=== PATIENT | female | born 1990 | race Caucasian/White ===

== ENCOUNTER 2016-11-11 22:49 | Emergency (ER) | payer BC, OTHER ==
[2016-11-11 23:07] VITALS: RESP 18
--- NOTE | 2016-11-11 23:31 | ED ---
Abdominal Pain HPI - General Chief Complaint: Abdominal Pain Stated Complaint: Abd Pain Time Seen by Provider: 11/11/16 23:11 Source: patient, RN notes reviewed Mode of arrival: ambulatory Limitations: no limitations - History of Present Illness Initial Comments: Patient is a 26-year-old female presents to the emergency room for evaluation of abdominal pain. Patient states she has been experiencing a cramping-type pain in her lower abdomen for the past 2 weeks. Patient states she's never had pain like this before. Patient denies any history of abdominal surgeries. Patient does mention she has a history of PCOS. Patient states this pain does not feel similar to her normal PCOS symptoms. Patient states her last menstrual cycle ended on 11/08/16. Patient states her menstrual cycle lasted about 3 days. Patient states she recently had her IUD taken out about a month ago. Patient no longer states she is on control. Patient denies chest pain or shortness of breath. Patient denies nausea or vomiting. Patient denies headache or dizziness. Patient denies pain or burning during urination, trouble urinating or blood in urine. Patient denies constipation or diarrhea. Patient states she had two normal bowel movements today. Patient denies fevers or chills. - Related Data Previous Rx's Medication Instructions Recorded Dicyclomine [Bentyl] 10 mg PO TID PRN #12 capsule 11/12/16 Allergies Allergy/AdvReac Type Severity Reaction Status Date / Time No Known Allergies Allergy Verified 11/11/16 23:27 Review of Systems ROS Statement: Those systems with pertinent positive or pertinent negative responses have been documented in the HPI. ROS Other: All systems not noted in ROS Statement are negative. Past Medical History Past Medical History: No Reported History History of Any Multi-Drug Resistant Organisms: None Reported Past Surgical History: No Surgical Hx Reported Past Psychological History: No Psychological Hx Reported Smoking Status: Current some day smoker Past Alcohol Use History: Occasional Past Drug Use History: None Reported General Exam - General Exam Comments Initial Comments: Sitting in exam room, no acute distress. Limitations: no limitations General appearance: alert, in no apparent distress Head exam: Present: atraumatic, normocephalic, normal inspection Eye exam: Present: normal appearance ENT exam: Present: normal exam Neck exam: Present: normal inspection Respiratory exam: Present: normal lung sounds bilaterally. Absent: respiratory distress Cardiovascular Exam: Present: regular rate, normal rhythm, normal heart sounds GI/Abdominal exam: Present: soft, normal bowel sounds. Absent: distended, tenderness, guarding, rebound, rigid Extremities exam: Present: normal inspection Back exam: Present: normal inspection Neurological exam: Present: alert, oriented X3, CN II-XII intact, normal gait Psychiatric exam: Present: normal affect, normal mood Skin exam: Present: warm, dry, intact, normal color. Absent: rash Course Vital Signs 11/11/16 11/12/16 23:05 01:35 Temperature 98.4 F 97.2 F L Pulse Rate 60 75 Respiratory 18 18 Rate Blood Pressure 106/70 101/70 O2 Sat by Pulse 98 98 Oximetry Medical Decision Making - Medical Decision Making Patient is a 26-year-old female presents emergency room for evaluation of lower abdominal cramping. Labs show no concerning findings. Ultrasound shows no significant findings. Patient will be placed on Bentyl for cramping and advised to follow-up with primary care provider for further evaluation. Patient states she understands everything that was discussed with her. Return parameters discussed. Case discussed with Dr. Can. - Lab Data Result diagrams: 11/11/16 23:43 11/11/16 23:43 Lab Results 11/11/16 11/11/16 11/11/16 Range/Units 23:15 23:15 23:43 WBC (3.8-10.6) k/uL RBC (3.80-5.40) m/uL Hgb (11.4-16.0) gm/dL Hct (34.0-46.0) % MCV (80.0-100.0) fL MCH (25.0-35.0) pg MCHC (31.0-37.0) g/dL RDW (11.5-15.5) % Plt Count (150-450) k/uL Neutrophils % % Lymphocytes % % Monocytes % % Eosinophils % % Basophils % % Neutrophils # (1.3-7.7) k/uL Lymphocytes # (1.0-4.8) k/uL Monocytes # (0-1.0) k/uL Eosinophils # (0-0.7) k/uL Basophils # (0-0.2) k/uL Sodium 141 (137-145) mmol/L Potassium 3.9 (3.5-5.1) mmol/L Chloride 105 (98-107) mmol/L Carbon Dioxide 24 (22-30) mmol/L Anion Gap 12 mmol/L BUN 14 (7-17) mg/dL Creatinine 0.70 (0.52-1.04) mg/dL Est GFR (MDRD) Af Amer >60 (>60 ml/min/1.73 sqM) Est GFR (MDRD) Non-Af >60 (>60 ml/min/1.73 sqM) Glucose 84 (74-99) mg/dL Calcium 9.7 (8.4-10.2) mg/dL Total Bilirubin 0.4 (0.2-1.3) mg/dL AST 27 (14-36) U/L ALT 35 (9-52) U/L Alkaline Phosphatase 53 (38-126) U/L Total Protein 7.3 (6.3-8.2) g/dL Albumin 4.4 (3.5-5.0) g/dL Amylase 49 (30-110) U/L Lipase 169 (23-300) U/L Urine Color Light Yellow Urine Appearance Clear (Clear) Urine pH 5.5 (5.0-8.0) Ur Specific [place] 1.006 (1.001-1.035) Urine Protein Negative (Negative) Urine Glucose (UA) Negative (Negative) Urine Ketones Negative (Negative) Urine Blood Negative (Negative) Urine Nitrite Negative (Negative) Urine Bilirubin Negative (Negative) Urine Urobilinogen <2.0 (<2.0) mg/dL Ur Leukocyte Esterase Trace H (Negative) Urine RBC <1 (0-5) /hpf Urine WBC 2 (0-5) /hpf Ur Squamous Epith Cells <1 (0-4) /hpf Urine HCG, Qual Not Detected (Not Detectd) 11/11/16 Range/Units 23:43 WBC 8.1 (3.8-10.6) k/uL RBC 4.23 (3.80-5.40) m/uL Hgb 13.1 (11.4-16.0) gm/dL Hct 38.3 (34.0-46.0) % MCV 90.7 (80.0-100.0) fL MCH 30.9 (25.0-35.0) pg MCHC 34.0 (31.0-37.0) g/dL RDW 12.5 (11.5-15.5) % Plt Count 301 (150-450) k/uL Neutrophils % 48 % Lymphocytes % 43 % Monocytes % 4 % Eosinophils % 2 % Basophils % 1 % Neutrophils # 3.9 (1.3-7.7) k/uL Lymphocytes # 3.5 (1.0-4.8) k/uL Monocytes # 0.3 (0-1.0) k/uL Eosinophils # 0.2 (0-0.7) k/uL Basophils # 0.1 (0-0.2) k/uL Sodium (137-145) mmol/L Potassium (3.5-5.1) mmol/L Chloride (98-107) mmol/L Carbon Dioxide (22-30) mmol/L Anion Gap mmol/L BUN (7-17) mg/dL Creatinine (0.52-1.04) mg/dL Est GFR (MDRD) Af Amer (>60 ml/min/1.73 sqM) Est GFR (MDRD) Non-Af (>60 ml/min/1.73 sqM) Glucose (74-99) mg/dL Calcium (8.4-10.2) mg/dL Total Bilirubin (0.2-1.3) mg/dL AST (14-36) U/L ALT (9-52) U/L Alkaline Phosphatase (38-126) U/L Total Protein (6.3-8.2) g/dL Albumin (3.5-5.0) g/dL Amylase (30-110) U/L Lipase (23-300) U/L Urine Color Urine Appearance (Clear) Urine pH (5.0-8.0) Ur Specific [place] (1.001-1.035) Urine Protein (Negative) Urine Glucose (UA) (Negative) Urine Ketones (Negative) Urine Blood (Negative) Urine Nitrite (Negative) Urine Bilirubin (Negative) Urine Urobilinogen (<2.0) mg/dL Ur Leukocyte Esterase (Negative) Urine RBC (0-5) /hpf Urine WBC (0-5) /hpf Ur Squamous Epith Cells (0-4) /hpf Urine HCG, Qual (Not Detectd) - Radiology Data Radiology results: report reviewed, image reviewed Disposition Clinical Impression: Abdominal pain Disposition: HOME SELF-CARE Condition: Good Instructions: Abdominal Pain (ED) Additional Instructions: Take medications as needed. Please follow up with primary care provider for further evaluation. If any new symptom arises or symptoms worsen, return to ER as soon as possible. Prescriptions: Dicyclomine [Bentyl] 10 mg PO TID PRN #12 capsule PRN Reason: Pain Referrals: Luzmaria Henriquez MD [Primary Care Provider] - 1-2 days Time of Disposition: 01:17
[2016-11-11 23:38] LABS: Appearance,Urine Clear (Clear); Bilirubin,Urine Negative (Negative); Glucose,Urine (UA) Negative (Negative); Ketones,Urine Negative (Negative); Leukocyte Esterase,Urine Trace (Negative); Nitrite,Urine Negative (Negative); PH, Urine 5.5 (5.0-8.0); Particle Count 646; Protein,Urine Negative (Negative); RBC,Urine <1 /hpf (0-5); Specific Gravity,Urine 1.006 (1.001-1.035); Squamous Epithelial Cell,Urine <1 /hpf (0-4); UA Billing (MACRO vs. MICRO) MICRO; Urobilinogen,Urine <2.0 mg/dL (<2.0); WBC,Urine 2 /hpf (0-5)
[2016-11-11 23:54] LABS: Basophils # (A) 0.1 k/uL (0-0.2); Basophils % (A) 1 %; CH 31.6; Eosinophils # (A) 0.2 k/uL (0-0.7); Eosinophils % (A) 2 %; HCT 38.3 % (34.0-46.0); HDW 2.53; HGB 13.1 gm/dL (11.4-16.0); Luc # (Auto) 0.14; Luc % (Auto) 2; Lymphocytes # (A) 3.5 k/uL (1.0-4.8); Lymphocytes % (A) 43 %; MCH 30.9 pg (25.0-35.0); MCV 90.7 fL (80.0-100.0); Mean Platelet Volume 6.4; Monocytes # (A) 0.3 k/uL (0-1.0); Monocytes % (A) 4 %; Neutrophils # (A) 3.9 k/uL (1.3-7.7); Neutrophils % (A) 48 %; RBC 4.23 m/uL (3.80-5.40); RDW 12.5 % (11.5-15.5); WBC 8.1 k/uL (3.8-10.6); WBC (Perox) 8.54
[2016-11-12 00:08] LABS: Glucose 84 mg/dL (74-99); Total Protein 7.3 g/dL (6.3-8.2)
[2016-11-12 00:09] LABS: ALT 35 U/L (9-52); AST 27 U/L (14-36); Alkaline Phosphatase 53 U/L (38-126); Amylase 49 U/L (30-110); Anion Gap 12 mmol/L; Blood Urea Nitrogen 14 mg/dL (7-17); Calcium 9.7 mg/dL (8.4-10.2); Carbon Dioxide 24 mmol/L (22-30); Chloride 105 mmol/L (98-107); Non-African American GFR(MDRD) >60 (>60 ml/min/1.73 sqM); Potassium 3.9 mmol/L (3.5-5.1); Sodium 141 mmol/L (137-145); Total Bilirubin 0.4 mg/dL (0.2-1.3)
--- NOTE | 2016-11-12 00:59 | US ---
EXAM: US Pelvis Complete, transvaginal CLINICAL HISTORY: Reason: Pain TECHNIQUE: Real-time transvaginal pelvic ultrasound (complete) with image documentation. COMPARISON: No relevant prior studies available. FINDINGS: Uterus/cervix: Uterus measures 7.8 x 3.6 x 5.5 cm. No myometrial masses identified. Endometrial echo complex measures 7.0 mm. No endometrial fluid collections identified. Right ovary: Right ovary is unremarkable measuring 2.9 x 2.0 x 1.9 cm. and contains several small follicles. Both ovaries demonstrate normal Doppler vascular flow signal. Left ovary: Left ovary is unremarkable measuring 3.1 x 2.2 x 2.3 cm and contains several small follicles. Free fluid: No free fluid in the cul-de-sac. Other findings: No abnormal adnexal Masses or cysts identified. IMPRESSION: Normal pelvic ultrasound.
[2016-11-12] MEDS ORDERED: DICYCLOMINE 10 MG CAP PO STA (01:25)
[2016-11-12 01:36] VITALS: BP 101/70; PULSE 75; TEMP 97.2
== END 2016-11-12 01:36 | disposition home or self-care (01) ==
LOC: EC 22:49
DX: R10.30 Lower abdominal pain, unspecified (principal); F17.200 Nicotine dependence, unspecified, uncomplicated; Z87.42 Personal history of other diseases of the female genital tract
CPT/HCPCS: 36415; 76830; 80053; 81001; 81025; 82150; 83690; 85025; 93975; 99284

== ENCOUNTER → 2017-09-22 | Outpatient (CLI) | payer OTHER ==
[2017-09-22 12:33] LABS: HCT 39.1 % (34.0-46.0); HGB 12.7 gm/dL (11.4-16.0); MCH 28.6 pg (25.0-35.0); MCHC 32.5 g/dL (31.0-37.0); RBC 4.44 m/uL (3.80-5.40); WBC 6.7 k/uL (3.8-10.6)
[2017-09-22 12:34] LABS: Basophils % (A) 1 %; Eosinophils # (A) 0.1 k/uL (0-0.7); Eosinophils % (A) 2 %; Lymphocytes # (A) 1.8 k/uL (1.0-4.8); Lymphocytes % (A) 26 %; Mean Platelet Volume 6.9; Monocytes # (A) 0.3 k/uL (0-1.0); Monocytes % (A) 4 %; Neutrophils # (A) 4.4 k/uL (1.3-7.7); Neutrophils % (A) 66 %; Platelet Count 305 k/uL (150-450)
[2017-09-22 12:39] LABS: ALT 19 U/L (9-52); AST 21 U/L (14-36); Albumin 4.3 g/dL (3.5-5.0); Alkaline Phosphatase 55 U/L (38-126); Anion Gap 9 mmol/L; Blood Urea Nitrogen 9 mg/dL (7-17); Calcium 9.7 mg/dL (8.4-10.2); Carbon Dioxide 25 mmol/L (22-30); Chloride 107 mmol/L (98-107); Glucose 88 mg/dL (74-99); Potassium 4.7 mmol/L (3.5-5.1); Sodium 141 mmol/L (137-145); Total Bilirubin 0.4 mg/dL (0.2-1.3)
[2017-09-22 12:55] LABS: T4, Free (Free Thyroxine) 1.02 ng/dL (0.78-2.19)
[2017-09-22 16:28] LABS: Gliadin AB IgA, Unit 1.2 U/mL
== END | disposition home or self-care (01) ==
LOC: LABWHC1 11:55
PROVIDERS: ATTEND Physician Assistant
DX: K59.09 Other constipation (principal)
CPT/HCPCS: 36415; 80053; 83516; 84439; 84443; 85025

== ENCOUNTER 2018-03-04 21:57 | Emergency (ER) | payer OTHER ==
[2018-03-04 22:11] VITALS: BP 121/85; PULSE 66; RESP 20; TEMP 98.4
--- NOTE | 2018-03-04 22:44 | ED ---
ENT HPI - General Chief complaint: ENT Stated complaint: Ear Pain Time Seen by Provider: 03/04/18 22:23 Source: patient Mode of arrival: ambulatory Limitations: no limitations - History of Present Illness Initial comments: This a 27-year-old female past medical history of chronic sinus issues and current left tympanic membrane perforation who presents today for chief complaint of right ear pain. Patient states that she has been seeing an ears nose throat specialist for a left tympanic membranes perforation and chronic sinusitis. However about 4 hours ago she began noticing right ear pain. Patient denies fever, chills, pain to the posterior, night sweats, complete hearing loss, drainage, injury to the rigth ear, tinnitus or any other symptoms. Patient denies any rashes or lesions. Pt denies recent antibiotic use. Remainder ROS (-). Upon arrival pt VS stable. - Related Data Home Medications Medication Instructions Recorded Confirmed Cetirizine HCl [Zyrtec] 10 mg PO DAILY 03/04/18 03/04/18 Fluticasone Nasal [place] [Flonase 1 spray NASAL DIRECTED PRN 03/04/18 03/04/18 Nasal [place]] Previous Rx's Medication Instructions Recorded Amoxicillin 500 mg PO Q12HR 10 Days #20 cap 03/04/18 Ibuprofen [Motrin] 600 mg PO Q8HR PRN 7 Days #21 tab 03/04/18 Allergies Allergy/AdvReac Type Severity Reaction Status Date / Time No Known Allergies Allergy Verified 03/04/18 22:11 Review of Systems ROS Statement: Those systems with pertinent positive or pertinent negative responses have been documented in the HPI. ROS Other: All systems not noted in ROS Statement are negative. Constitutional: Denies: fever, chills, night sweats ENT: Reports: ear pain, hearing loss (pt admits to muffled hearing in right hear ) Respiratory: Denies: dyspnea, wheezes, hemoptysis, stridor Cardiovascular: Denies: chest pain, palpitations Endocrine: Denies: fatigue Gastrointestinal: Denies: abdominal pain, nausea, vomiting, diarrhea, constipation Genitourinary: Denies: urgency, dysuria Musculoskeletal: Denies: back pain Skin: Denies: as per HPI, rash, lesions Neurological: Denies: headache, numbness, paresthesias, confusion, abnormal gait Past Medical History Past Medical History: No Reported History History of Any Multi-Drug Resistant Organisms: None Reported Past Surgical History: No Surgical Hx Reported Past Psychological History: No Psychological Hx Reported Smoking Status: Former smoker Past Alcohol Use History: Occasional Past Drug Use History: None Reported General Exam - General Exam Comments Initial Comments: General: The patient is awake and alert, in no distress, and does not appear acutely ill. Eye: Pupils are equal, round and reactive to light, extra-ocular movements are intact. No nystagmus. There is normal conjunctiva bilaterally. No signs of icterus. Ears, nose, mouth and throat: There are moist mucous membranes and no oral lesions. Left tympanic membranes not erythematous, however there is a tympanic number perforation at the 6 o'clock position. There is no evidence of active draining. Upon examination of the right big membrane that is erythematous and bulging. There is no evidence of effusion or tympanic membrane perforation at this time. Examination of external auditory canal the ears bilaterally is within normal limits no erythema or edema. Patient denies pain to pulling of the auricle or pressure on the tragus. There is no tenderness to patient over the mastoid bilaterally. No palpable preauricular lymph adenopathy. Examination of the oropharynx there is postnasal drip. Tonsils are not erythematous, not erythematous oropharynx. Tonsillar exudates or crypts. Neck: The neck is supple, there is no tenderness or JVD. Cardiovascular: There is a regular rate and rhythm. No murmur, rub or gallop is appreciated. Respiratory: Lungs are clear to auscultation, respirations are non-labored, breath sounds are equal. No wheezes, stridor, rales, or rhonchi. Musculoskeletal: Normal ROM, no tenderness. Radial pulses equal bilaterally 2+ . Neurological: A&O x 3. CN II-XII intact, There are no obvious motor or sensory deficits. Coordination appears grossly intact. Speech is normal. Skin: Skin is warm and dry and no rashes or lesions are noted. Psychiatric: Cooperative, appropriate mood & affect, normal judgment. Limitations: no limitations Course Vital Signs 03/04/18 22:09 Temperature 98.4 F Pulse Rate 66 Respiratory 20 Rate Blood Pressure 121/85 O2 Sat by Pulse 99 Oximetry Medical Decision Making - Medical Decision Making PE revealed signs of right AOM. No concern/signs/symptoms of mastoiditis or cholesteatoma at this time. Pt VS stable afebrile. At this time I feel pt is stable for d/c with ENT f/u and RX for amoxicillin (pt denied current or recent abx use). Case discussed wiht Dr. Oliveira and pt discharged in stable condition. Pt agreed with plan prior to discharge and denied questions at this time. Pt denied current or risk of at this time. Disposition Clinical Impression: Otitis media, Right ear pain Disposition: HOME SELF-CARE Condition: Good Instructions: Ear Infection (ED) Additional Instructions: Please use medication as discussed. Please follow-up with your ENT or family doctor in the next 2-3 days. Please return to emergency room if the symptoms increase or worsen or for any other concerns. Prescriptions: Amoxicillin 500 mg PO Q12HR 10 Days #20 cap Ibuprofen [Motrin] 600 mg PO Q8HR PRN 7 Days #21 tab PRN Reason: Pain Is patient prescribed a controlled substance at d/c from ED?: No Referrals: Riley Cortes DO [Primary Care Provider] - 1-2 days Antonio Mobley DO [Doctor of Osteopathic Medicine] - 1-2 days Time of Disposition: 22:44
== END 2018-03-04 22:49 | disposition home or self-care (01) ==
LOC: EC 21:57 → SUPCPDRO 21:57 → EC 22:49
DX: H66.91 Otitis media, unspecified, right ear (principal); Z87.891 Personal history of nicotine dependence; Z79.899 Other long term (current) drug therapy
CPT/HCPCS: 99282

== ENCOUNTER → 2018-09-17 | Outpatient (CLI) | payer OTHER ==
[2018-09-17 14:43] VITALS: BP 110/77; PULSE 78; RESP 16; TEMP 97.4; BMI 34.6
--- NOTE | 2018-09-17 15:44 | P.HPBAR ---
Bariatric H&P - History & Physicial H&P Date: 09/17/18 History & Physicial: Visit/CC: initial visit Patient initial contact: Initial weight: 106.282 kg Initial weight in pounds: 234.31 Height: 5 ft 7.75 in Initial BMI: 34.6 Last weight: Current weight: 106.282 kg Current weight in pounds: 234.31 Current BMI: 34.6 [place] body weight (based on NIH guidelines): 65.771 kg Excess body weight loss: 0.0% The patient is a 28 year-old F who presents for Bariatric Assessment. Patient seen today as a new patient bariatric evaluation. She was at the center 2 days ago. The patient's sister had previously been gastrectomy. She is interested in sleeve gastrectomy at this time. The patient has struggled with her weight fluctuating over the years. She was having his diet to 80. This was when she was in high school. She has had episodes in the distant past where she felt she may be suffering from anorexia. Patient has issues currently with depression PCO S, and infertility related to her weight. Patient quit smoking 4 months ago. Denies any history of DVT or dysphagia. No significant reflux symptoms. Review of Systems The patient denies any acute changes in vision or hearing, no dysphagia or odynophagia, no chest pain or shortness of breath, no dysuria or hematuria, no headache, no runny nose, no rectal bleeding or melena, no unexplained weight loss Past Medical History Past Medical History: No Reported History History of Any Multi-Drug Resistant Organisms: None Reported Past Surgical History: No Surgical Hx Reported Past Psychological History: No Psychological Hx Reported Smoking Status: Former smoker Past Alcohol Use History: Occasional Past Drug Use History: None Reported Surgical - Exam Vital Signs Temp Pulse Resp BP 97.4 F L 78 16 110/77 09/17/18 14:41 09/17/18 14:41 09/17/18 14:41 09/17/18 14:41 Physical exam: General: Well-developed, well-nourished HEENT: Normocephalic, sclerae nonicteric Abdomen: Nontender, nondistended Extremities: No edema Neuro: Alert and oriented Bariatric Assessment & Plan (1) Morbid obesity Narrative/Plan: Surgical options reviewed in detail. Patient interested in sleeve gastrectomy. Patient's weight has fluctuated significantly over the years. I do believe she is a good candidate for sleeve gastrectomy. Await primary care physician supporting documentation. Patient will require preoperative EGD. Patient will follow up post endoscopy prior to scheduling. Status: Acute Bariatric Checklist Checklist: Plan: Checklist: EGD: 1. Hiatal hernia: 2. H. Pylori: HgbA1c: Vitamin D: Smoking: Former smoker Primary care physician referral: dr mckeon Psychiatry clearance: Cardiology clearance: Sleep study: Diet journal: VTE risk score: VTE risk level: Rehab needs at discharge:
[2018-09-18 01:41] LABS: Hemoglobin A1C 4.9 % (4.0-6.0)
== END ==
LOC: BARWHC3 14:13 → MERGE 14:30
PROVIDERS: ATTEND Surgery
DX: E66.01 Morbid (severe) obesity due to excess calories (principal); E28.2 Polycystic ovarian syndrome; F32.9 Major depressive disorder, single episode, unspecified; Z68.34 Body mass index [BMI] 34.0-34.9, adult; Z87.891 Personal history of nicotine dependence
CPT/HCPCS: 83036; 93005; 99211

== ENCOUNTER 2018-09-23 11:20 | Day surgery (SDC) | payer OTHER ==
[2018-09-22 14:41] VITALS: BMI 36.3
[~2018-09-23 11:20] MED LIST: LACTATED RINGERS 1,000 ML IV SCH; LIDOCAINE 1% 20 ML VIAL (10MG/ML) FOR IV START INTRADERMA PRN
[2018-09-23 11:37] VITALS: TEMP 97.9
[2018-09-23] MEDS ORDERED: LACTATED RINGERS 1,000 ML IV ONE (11:37)
[2018-09-23] MEDS ORDERED: MIDAZOLAM 2 MG/2 ML VIAL ONE (12:34)
[2018-09-23] MEDS ORDERED: LIDOCAINE 1% INJ 10MG/ML (20 ML MDV) ONE (12:34)
[2018-09-23] MEDS ORDERED: PROPOFOL 10 MG/ML 20 ML VIAL IV ONE (12:34)
--- NOTE | 2018-09-23 12:38 | P.GSHP ---
History of Present Illness H&P Date: 09/23/18 Chief Complaint: GERD, presurgical Patient here today for upper endoscopy. Patient recently seen in the bariatric clinic. Patient is scheduled for upcoming sleeve gastrectomy. Minimal reflux symptoms. No dysphagia. Past Medical History Past Medical History: No Reported History Additional Past Medical History / Comment(s): migraines, palpitations, History of Any Multi-Drug Resistant Organisms: None Reported Past Surgical History: No Surgical Hx Reported Additional Past Surgical History / Comment(s): oral surgery Past Anesthesia/Blood Transfusion Reactions: No Reported Reaction Smoking Status: Former smoker - Past Family History Mother Family Medical History: No Reported History Medications and Allergies Home Medications Medication Instructions Recorded Confirmed Type No Known Home Medications 09/18/18 09/22/18 History Allergies Allergy/AdvReac Type Severity Reaction Status Date / Time No Known Allergies Allergy Verified 09/22/18 14:35 Surgical - Exam Vital Signs Temp Pulse Resp BP Pulse Ox 97.9 F 67 18 130/75 100 09/23/18 11:36 09/23/18 11:36 09/23/18 11:36 09/23/18 11:36 09/23/18 11:36 Physical exam: General: Well-developed, well-nourished HEENT: Normocephalic, sclerae nonicteric Abdomen: Nontender, nondistended Extremities: No edema Neuro: Alert and oriented Assessment and Plan (1) Morbid obesity Narrative/Plan: Will proceed with upper endoscopy at this time Current Visit: No Status: Acute Code(s): E66.01 - MORBID (SEVERE) OBESITY DUE TO EXCESS CALORIES SNOMED Code(s): 122467945
--- NOTE | 2018-09-23 12:44 | P.PCN ---
Date of Procedure: 09/23/18 Procedure(s) Performed: Preoperative Dx: GERD, presurgical Postoperative Dx: Mild gastritis, small sliding hiatal hernia Procedure: EGD with Bx Anesthesia: Sedation Endoscopist: Dr. Lauren Specimens: Antrum Endoscopic Procedure: The patient was on the endoscopy table in the left decubitus position. The Olympus gastroscope was inserted into the oropharynx and passed under direct visualization to the region of the third portion of the duodenum. From that point the scope was slowly withdrawn inspecting all surfaces carefully. There were no neoplastic inflammatory or polypoid lesions throughout the duodenum. The pylorus was widely patent. The stomach was carefully inspected. There was mild gastritis present. A biopsy of the antrum took place to rule out H. pylori. Retroflexion revealed a small sliding hiatal hernia. The GE junction was present 1 cm above the diaphragmatic hiatus. The esophagus was then carefully examined. There were no neoplastic inflammatory or polypoid lesions throughout the visualized esophagus. The patient was then taken to the recovery room in stable condition per anesthesia guidelines. Recommendations: Await biopsy results.
[2018-09-23 12:54] VITALS: RESP 16
[2018-09-23 13:08] VITALS: BP 90/54; PULSE 51
== END 2018-09-23 13:25 | disposition home or self-care (01) ==
LOC: ORWHC2ENDO 11:20
PROVIDERS: ATTEND Surgery
DX: K21.9 Gastro-esophageal reflux disease without esophagitis (principal); E66.01 Morbid (severe) obesity due to excess calories; Z68.36 Body mass index [BMI] 36.0-36.9, adult; K29.50 Unspecified chronic gastritis without bleeding; K44.9 Diaphragmatic hernia without obstruction or gangrene; Z87.891 Personal history of nicotine dependence
CPT/HCPCS: 81025; 43239; J2250; J2001; J2704; 88305

== ENCOUNTER → 2019-01-18 | Outpatient (CLI) | payer OTHER | END | disposition home or self-care (01) | LOC: LABWHC1 12:54 | PROVIDERS: ATTEND Surgery | DX: F17.200 Nicotine dependence, unspecified, uncomplicated (principal) | CPT/HCPCS: 80323 ==

== ENCOUNTER → 2019-04-27 | Outpatient (CLI) | payer BC, OTHER ==
[2019-04-27 15:06] VITALS: BP 115/84; PULSE 101; RESP 16; TEMP 98.2; BMI 37.2
--- NOTE | 2019-04-27 15:34 | P.BASOAP ---
Subjective Progress Note Date: 04/27/19 Principal diagnosis: Morbid obesity Patient here today to discuss sleeve gastrectomy. Patient was seen earlier this year and actually underwent upper endoscopy and was scheduled for sleeve gastrectomy when she had a change in her insurance coverage. Surgery was held at that time. She is now interested in resuming her weight loss journey. She is interested in proceeding with sleeve gastrectomy in the near future. No significant changes to her history since last evaluation with the exception of starting Zoloft and Flonase. She has obtained cardiac clearance for history of possible SVT in the past a low she states she was told it was likely a panic attack. Her weight has gone up from 234-252. No recent labs. Objective - Vital Signs Vital signs: Vital Signs Temp 98.2 F 04/27/19 15:02 Pulse 101 H 04/27/19 15:02 Resp 16 04/27/19 15:02 BP 115/84 04/27/19 15:02 Pulse Ox Intake & Output 04/26/19 04/27/19 04/27/19 18:59 06:59 18:59 Weight 114.305 kg - Exam Abdomen: Soft, nontender, nondistended Assessment/Plan (1) Morbid obesity Narrative/Plan: Will schedule for sleeve gastrectomy in the near future. We'll plan hiatal herniorrhaphy simultaneous to the procedure. The risks of bleeding, infection, stenosis, stricture, leak, abscess, fistula formation, peritonitis, p oor weight loss, reflux, vomiting, conversion to an open procedure, aborting sleeve gastrectomy, AL, PE, DVT, and were discussed. The patient understands and wishes to proceed.Check labs drawn at her primary care physician's office earlier today. Plan: Date: 04/27/19 Initial Weight: 106.282 kg Initial BMI: 34.6 Current Weight: 114.305 kg Current BMI: 37.2 Type of Surgery: Total Volume in Band: Previous Volume: Volume Removed: Volume Added: Band Size:
== END ==
LOC: BARWHC3 14:39
PROVIDERS: ATTEND Surgery
DX: E66.01 Morbid (severe) obesity due to excess calories (principal); Z68.37 Body mass index [BMI] 37.0-37.9, adult
CPT/HCPCS: 99211

== ENCOUNTER 2019-05-31 09:34 | Inpatient (IN) | payer BC ==
[~2019-05-31 09:34] MED LIST changes: +DEXAMETHASONE SOD PHOSPHATE 10 MG/ML 1 ML VIAL IV ONE; +ENOXAPARIN 40 MG/0.4 ML SYRINGE SQ ONE; -LACTATED RINGERS 1,000 ML IV SCH; -LIDOCAINE 1% 20 ML VIAL (10MG/ML) FOR IV START INTRADERMA PRN; +MIDAZOLAM 2 MG/2 ML VIAL IV PRN; +SCOPOLAMINE 1.5MG/72HR PATCH TRANSDERM ONE
--- NOTE | 2019-05-31 10:17 | P.GSHP ---
History of Present Illness H&P Date: 05/31/19 Chief Complaint: Morbid obesity 29-year-old female known to our service. Initially seen in September of this year. Patient complaining of morbid obesity. Her sister has had a sleeve gastrectomy in the past. She is interested in only sleeve gastrectomy at this time. Recent BMI 35.9. Patient suffers from depression PCO S and infertility related to her weight. Denies history of DVT or dysphagia. Minimal reflux symptoms. Recent EGD showed mild gastritis and a small hiatal hernia. Past Medical History Past Medical History: No Reported History Additional Past Medical History / Comment(s): past hx of occasional migraines, palpitations, History of Any Multi-Drug Resistant Organisms: None Reported Past Surgical History: No Surgical Hx Reported Additional Past Surgical History / Comment(s): oral surgery, EGD Past Anesthesia/Blood Transfusion Reactions: No Reported Reaction Smoking Status: Former smoker - Past Family History Mother Family Medical History: No Reported History Medications and Allergies Home Medications Medication Instructions Recorded Confirmed Type Fluticasone Nasal [place] [Flonase 2 spray NASAL DAILY 04/28/19 05/27/19 History Nasal [place]] Loratadine [Claritin] 10 mg PO DAILY 04/28/19 05/27/19 History Sertraline [Zoloft] 50 mg PO HS 04/28/19 05/27/19 History Allergies Allergy/AdvReac Type Severity Reaction Status Date / Time No Known Allergies Allergy Verified 05/27/19 08:55 Surgical - Exam Physical exam: General: Well-developed, well-nourished HEENT: Normocephalic, sclerae nonicteric Abdomen: Nontender, nondistended Extremities: No edema Neuro: Alert and oriented Assessment and Plan (1) Morbid obesity Narrative/Plan: 29-year-old female with morbid obesity and recent findings of hiatal hernia. We'll proceed with laparoscopic sleeve gastrectomy with hiatal hernia repair. The risks of bleeding, infection, stenosis, stricture, leak, abscess, fistula formation, peritonitis, poor weight loss, reflux, vomiting, conversion to an open procedure, aborting sleeve gastrectomy, [place], PE, DVT, and were discussed. The patient understands and wishes to proceed. Current Visit: No Status: Acute Code(s): E66.01 - MORBID (SEVERE) OBESITY DUE TO EXCESS CALORIES SNOMED Code(s): 908241680
[2019-05-31] MEDS ORDERED: LIDOCAINE 1% 20 ML VIAL (10MG/ML) FOR IV START INTRADERMA ONE (10:45)
[2019-05-31] MEDS: LACTATED RINGERS 1,000 ML IV SCH (10:46)
[2019-05-31] MEDS: ONDANSETRON 4 MG/2 ML VIAL IVP ONE ×2 (10:47→15:25)
[2019-05-31] MEDS ORDERED: DEXAMETHASONE SOD PHOSPHATE 4 MG/ML 1 ML VIAL ONE (11:53)
[2019-05-31] MEDS ORDERED: ROPIVACAINE 5 MG/ML 30 ML VIAL ONE (11:53)
[2019-05-31] MEDS ORDERED: MIDAZOLAM 2 MG/2 ML VIAL ONE (11:53)
[2019-05-31] MEDS ORDERED: PROPOFOL 10 MG/ML 20 ML VIAL IV ONE (11:53)
[2019-05-31] MEDS ORDERED: fentaNYL (PF) 50 MCG/ML 2 ML AMP ONE (11:53)
[2019-05-31] MEDS ORDERED: LIDOCAINE 1% INJ 10MG/ML (20 ML MDV) ONE (11:53)
[2019-05-31] MEDS ORDERED: NEOSTIGMINE 1 MG/ML 10 ML VIAL ONE (11:53)
[2019-05-31] MEDS ORDERED: HYDROmorphone (PF) 1 MG/ML ONE (11:53)
[2019-05-31] MEDS ORDERED: ROCURONIUM BROMIDE 10 MG/ML 10 ML VIAL IV ONE (11:53)
[2019-05-31] MEDS ORDERED: METHYLENE BLUE 10 MG/ML (10 ML VIAL) ONE (11:53)
[2019-05-31] MEDS ORDERED: GLYCOPYRROLATE 0.2 MG/ML 2 ML VIAL ONE (11:53)
[2019-05-31] MEDS ORDERED: BUPIVACAINE (PF) 0.25% 30 ML VIAL SQ ONE (12:33)
[2019-05-31] MEDS ORDERED: LACTATED RINGERS 1,000 ML IV ONE (12:33)
[2019-05-31] MEDS ORDERED: ONDANSETRON 4 MG/2 ML VIAL IVP PRN (14:09)
[2019-05-31] MEDS ORDERED: NALOXONE 0.4 MG/ML 1 ML VIAL IV PRN (14:09)
[2019-05-31] MEDS ORDERED: SIMETHICONE 80 MG CHEWABLE PO PRN (14:09)
[2019-05-31] MEDS ORDERED: diphenhydrAMINE 50 MG/ML 1 ML VIAL IVP PRN (14:09)
--- NOTE | 2019-05-31 14:13 | P.OP ---
Date of Procedure: 05/31/19 Procedure(s) Performed: PREOPERATIVE DIAGNOSIS: Morbid obesity, PCos, hiatal hernia POSTOPERATIVE DIAGNOSIS: Same PROCEDURE: Laparoscopic sleeve gastrectomy with repair hiatal hernia SURGEON: Leonidas EBL: Minimal ANESTHESIA: General COMPLICATIONS: None OPERATIVE PROCEDURE: Patient was placed in the operating table in the supine position. She was placed under general anesthesia at that time. The abdomen was prepped and draped in sterile fashion after the patient was placed in lithotomy. A 5 mm optical trocar was used to enter the abdominal cavity in the left upper quadrant. Insufflation took place to 15 millimeters mercury. An additional right subxiphoid 5 mm trocar was then placed under direct relation and then removed. 2 additional 5 mm trochars were placed in the right upper quadrant and left upper quadrant under direct visualization and a 15 mm trocar in the supraumbilical location. The liver was retracted using a medium Sukumar liver retractor through the right subxiphoid trocar site. The hiatus was inspected. The patient had a small sized hiatal hernia. Circumferentially the phrenoesophageal ligament was incised identifying the actual defect. The right diaphragmatic crura was well visualized. I was able to bluntly dissect and visualize the left diaphragmatic crura. At that point I moved to the mid aspect of the greater curvature the stomach. The short gastric vasculature was divided using a LigaSure device proximally. I then switched and divided the short gastrics distally to a 3-4 cm from the pylorus. The dissection took place up to the left diaphragmatic crura at that point. The posterior short gastrics were likewise divided using the LigaSure device. Once the stomach was fully mobilized the blunt tipped 40-[place] bougie dilator was advanced into the stomach and advanced all the way to the prepyloric location. A black echelon 60 stapler with seam guard was utilized and fired tangentially across the antrum taking care to avoid narrowing at the incisura angularis. Subsequent firings of the stapler took place. A total of 4 green echelon 60 staplers with seam guard took place proximally staying on the outer edge of our dilator. Once we reached the most proximal portion of the stomach a single firing of the gold echelon 60 stapler without seen guard took place. This only covered a distance of about 1 cm. The oral gastric tube was reinserted. The stomach was insufflated with approximately 100 mL of methylene blue. No evidence of leak or obstruction was seen. The hiatus was then addressed once again. 2 separate 2-0 Ethibond sutures were used to reapproximate the crura posteriorly. This adequately closed the diaphragmatic hernia. Tisseel fibrin glue was then sprayed along the entire length of the staple line. No bleeding was identified. The distal aspect of the sleeve was then reapproximated to the gastrosplenic and blayne rocolic ligament using a short running 20 strata fix suture. This was done to prevent kinking or twisting of the sleeve. The stomach remnant was removed from the 15 mm trocar site without difficulty. The fascia at the 15 more site was closed using interrupted 0 Vicryl sutures with the laparoscopic suture passer and Rigo Ariana technique. The insufflation was evacuated. The skin at all 5 incisions were closed using 4-0 Monocryl sutures. Skin glue was then applied.
[2019-05-31] MEDS: HYDROmorphone 0.5 MG/0.5 ML SYRINGE IVP PRN ×6 (14:27→22:13)
--- NOTE | 2019-05-31 14:46 | P.ANPRN ---
Procedure Note - Anesthesia - Nerve Block Performed Bilateral Transversus Abdominis Single Time Out Performed: Yes Date of Procedure: 05/31/19 Procedure Start Time: 14:28 Procedure Stop Time: 14:38 Location of Patient: Phase I Indication: Acute Post-Operative Pain, Requested by Surgeon Sedation Type: Sedate with meaningful contact maintained Preparation: Sterile Prep Position: Supine Catheter: None Needle Types: Pajunk Needle Gauge: 21 Ultrasound used to visualize needle placement: Yes Ultrasound used to observe medication spread: Yes Injectate: 0.5% Ropivacaine (see comment for volume) (ropivacaine 0.5% 20 cc + decadron 2mg-- per side) Blood Aspirated: No Pain Paresthesia on Injection Noted: No Resistance on Injection: Normal Image Stored and Saved: Yes Events: Uneventful and Well Tolerated
[2019-05-31] MEDS: ALBUTEROL NEBULIZED 2.5 MG/3 ML INHALATION SCH ×2 (17:32→19:44)
[2019-05-31] MEDS: 0.9% NACL WITH KCL 20 MEQ/L 1,000 ML IV SCH (17:53)
[2019-05-31] MEDS ORDERED: ACETAMINOPHEN IV (For NPO) 1,000 MG in EMPTY BAG 1 BAG IVPB ONE (18:00)
--- NOTE | 2019-05-31 20:17 | HP ---
HISTORY AND PHYSICAL REASON FOR CONSULTATION: Advice regarding anxiety and depression and other multiple medical issues requested by Dr. Lauren. PRESENT ILLNESS: This 29-year-old woman with a past medical history of occasional migraines, palpitations, anxiety, depression, history of nicotine dependence, being followed by Dr. Peri Medina in the outpatient setting underwent laparoscopic sleeve gastrectomy with repair of hiatal hernia by Dr. Lauren. Postoperatively, the patient complained of some pain. There is no history of palpitations, no history of headache, loss of consciousness, seizures. No shortness of breath, hematochezia, melena at this time. The patient is complaining of upper abdominal and lower chest pain as well, radiating to the back, most likely postoperative. PAST MEDICAL HISTORY: History of occasional migraines. History of anxiety, depression, history of nicotine dependence. MEDICATIONS: Prior to admission, home medications are: 1. Zoloft 50 mg p.o. q.h.s. 2. Claritin 10 mg p.o. daily. 3. Nasal spray 2 sprays daily. ALLERGIES: None. FAMILY HISTORY: No history of heart disease or strokes in the family. SOCIAL HISTORY: Previous history of smoking. No history of current smoking or alcohol intake. REVIEW OF SYSTEMS: ENT: No diminished vision. No diminished hearing. CARDIOVASCULAR: No angina or palpitations. RESPIRATIONS: No cough. No hemoptysis. GI as mentioned earlier. no dysuria or hematuria. NERVOUS SYSTEM: No numbness or weakness. ALLERGY/IMMUNOLOGY: No asthma or hayfever. MUSCULOSKELETAL as mentioned earlier. HEMATOLOGY/ONCOLOGY: No history of anemia. ENDOCRINE: No history of diabetes or hypothyroidism. CONSTITUTIONAL: As mentioned earlier. DERMATOLOGY: Negative. RHEUMATOLOGY negative. PSYCHIATRY as mentioned earlier. PHYSICAL EXAM: Patient is alert, oriented x3. The pulse is 64. Blood pressure 126/81, respirations 16, temperature 97.8, pulse ox 91 percent on room air. HEENT: Conjunctivae normal. Oral mucosa moist. NECK is no jugular venous distention. No carotid bruit. No lymph node enlargement. Cardiovascular systems: S1, S2 muffled. RESPIRATIONS: Breath sounds diminished in the bases. A few scattered rhonchi. No crackles. ABDOMEN: Soft, obese, status post surgery. LEGS: No edema. No swelling. NERVOUS SYSTEM: Higher functions as mentioned earlier. Moves all 4 limbs. No focal motor or sensory deficits. LYMPHATICS: No lymph nodes palpable in the neck, axillae or groin. SKIN: No ulcer, no rashes and no bleeding. JOINTS: No active deforming arthropathy. LABS: Previous labs, preop labs hematology is okay. CMP is also within normal limits. ASSESSMENT: 1. Status post laparoscopic sleeve gastrectomy with repair of hiatal hernia. 2. History of migraine. 3. History of palpitations. 4. History of anxiety, depression. 5. Remote history of nicotine dependence. RECOMMENDATIONS AND DISCUSSION: In this 29-year-old woman who presented with multiple medical issues, at this time, I recommend to continue current medications, current management and symptomatic treatment. Resume the home medications. DVT prophylaxis. Pain medications. Guarded prognosis because of multiple complex medical issues. Further recommendations to follow. A copy of dictation is being forwarded to Dr. Peri Medina who is the primary physician. MMODL / IJN: [id number] /
[2019-05-31] MEDS: SERTRALINE 50 MG TAB PO SCH (21:19)
[2019-05-31] MEDS: ONDANSETRON 4 MG/2 ML VIAL IVP PRN (22:13)
[2019-06-01] MEDS ORDERED: HYDROmorphone 1 MG/ML 1 ML SYRINGE ONE (01:53)
[2019-06-01] MEDS ORDERED: ENOXAPARIN 40 MG/0.4 ML SYRINGE SQ ONE (01:53)
[2019-06-01] MEDS ORDERED: 0.9% NACL WITH KCL 20 MEQ/L 1,000 ML BAG IV ONE (01:53)
[2019-06-01] MEDS ORDERED: ONDANSETRON 4 MG/2 ML VIAL ONE (01:53)
[2019-06-01] MEDS ORDERED: SIMETHICONE 80 MG CHEWABLE ONE (01:53)
[2019-06-01] MEDS: ENOXAPARIN 40 MG/0.4 ML SYRINGE SQ SCH ×2 (05:36→14:02)
[2019-06-01] MEDS: 0.9% NACL WITH KCL 20 MEQ/L 1,000 ML IV SCH ×2 (05:36→06:13)
[2019-06-01] MEDS: ONDANSETRON 4 MG/2 ML VIAL IVP PRN ×2 (05:53→11:16)
[2019-06-01] MEDS: HYDROmorphone 1 MG/ML 1 ML SYRINGE IVP PRN ×3 (05:54→11:16)
[2019-06-01] MEDS: LACTATED RINGERS 1,000 ML IV SCH (06:13)
[2019-06-01] MEDS: ALBUTEROL NEBULIZED 2.5 MG/3 ML INHALATION SCH ×4 (07:13→21:01)
[2019-06-01] MEDS: 1: MVI, ADULT NO.4 WITH VIT K 10 ML, THIAMINE 100 MG, FOLIC ACID 1 MG, POTASSIUM CHLORID IV SCH ×12 (08:09→18:57)
[2019-06-01] MEDS: PANTOPRAZOLE 40 MG/10 ML VIAL IV SCH (08:14)
[2019-06-01] MEDS: FLUTICASONE 50MCG/SPRAY NASAL 16GM NASAL SCH (08:14)
[2019-06-01 09:36] VITALS: BMI 36.1
[2019-06-01 09:47] LABS: Basophils % (A) 0 %; Eosinophils % (A) 0 %; HCT 36.4 % (34.0-46.0); HGB 12.4 gm/dL (11.4-16.0); Lymphocytes # (A) 1.8 k/uL (1.0-4.8); Lymphocytes % (A) 11 %; MCH 29.3 pg (25.0-35.0); MCHC 34.1 g/dL (31.0-37.0); MCV 85.9 fL (80.0-100.0); Monocytes # (A) 0.6 k/uL (0-1.0); Monocytes % (A) 3 %; Neutrophils # (A) 13.8 k/uL (1.3-7.7); Neutrophils % (A) 85 %; Platelet Count 388 k/uL (150-450); RBC 4.24 m/uL (3.80-5.40); RDW 13.9 % (11.5-15.5); WBC 16.3 k/uL (3.8-10.6)
[2019-06-01 09:56] LABS: African American GFR (CKD) >90 (>60 ml/min/1.73 sqM); Anion Gap 11 mmol/L; Blood Urea Nitrogen 5 mg/dL (7-17); Carbon Dioxide 23 mmol/L (22-30); Chloride 104 mmol/L (98-107); Magnesium 1.8 mg/dL (1.6-2.3); Non-African American GFR(CKD) >90 (>60 ml/min/1.73 sqM); Phosphorus 3.6 mg/dL (2.5-4.5); Potassium 4.1 mmol/L (3.5-5.1); Sodium 138 mmol/L (137-145)
--- NOTE | 2019-06-01 11:48 | FL ---
EXAMINATION TYPE: FL UGI DATE OF EXAM: 06/01/2019 CLINICAL HISTORY: Status post gastric sleeve Contrast: Omnipaque 350 50 mL The patient ingested contrast without difficulty or delay. Noted are postsurgical changes of gastric sleeve. There is no evidence for leak or obstruction. Contrast is noted within the duodenum. IMPRESSION: Post-surgical change of gastric sleeve without evidence for obstruction or leak at this point in time.
--- NOTE | 2019-06-01 12:30 | P.PN ---
<Madeleine Calderon Carol - Last Filed: 06/01/19 12:28> Subjective Progress Note Date: 06/01/19 CHIEF COMPLAINT: morbid obesity HISTORY OF PRESENT ILLNESS: Patient is status post laparoscopic sleeve gastrectomy with hiatal hernia repair. Postop day #1. Patient examined this where the bedside. She reports significant nausea. She reports having dry heaves this morning but no actual emesis. She complains of gas pain and belching. She denies passing flatus. Postoperative esophagram negative for leak or obstruction. PHYSICAL EXAM: VITAL SIGNS: Reviewed. GENERAL: Well-developed in no acute distress. HEENT: No sclera icterus. Extraocular movements grossly intact. Moist buccal mucosa. Head is atraumatic, normocephalic. ABDOMEN: Soft. Nondistended. Appropriate surgical tenderness. Laparoscopic incision sites clean dry and intact. NEUROLOGIC: Alert and oriented. Cranial nerves II through XII grossly intact. ASSESSMENT: 1. Morbid obesity, status post laparoscopic sleeve gastrectomy and hiatal hernia repair PLAN: 1. Continue NPO except for ice chips due to nausea. Continue IV fluids. May begin clear liquids if nausea improves throughout the day 2. Continue Zofran. Begin Reglan PRN 3. Increase activity as tolerated 4. Incentive spirometry 5. Pain control Nurse practitioner note has been reviewed by physician. Signing provider agrees with the documented findings, assessment, and plan of care. Objective - Vital Signs Vital signs: Vital Signs Temp 97.8 F 06/01/19 07:00 Pulse 72 06/01/19 07:28 Resp 18 06/01/19 07:00 BP 135/80 06/01/19 07:00 Pulse Ox 96 06/01/19 11:38 Intake & Output 05/31/19 06/01/19 06/01/19 18:59 06:59 18:59 Intake Total 2150 Output Total 10 Balance 0 Weight 111 kg 111 kg Intake: IV 2150 Output: Estimated Blood Loss 10 Other: Voiding Method Toilet Toilet # Voids 3 1 - Labs CBC & Chem 7: 06/01/19 07:46 06/01/19 07:46 Labs: Abnormal Lab Results - Last 24 Hours (Table) 06/01/19 06/01/19 Range/Units 07:46 07:46 WBC 16.3 H (3.8-10.6) k/uL Neutrophils # 13.8 H (1.3-7.7) k/uL BUN 5 L (7-17) mg/dL <LeonidasYobany - Last Filed: 06/01/19 19:44> Subjective As above. Patient doing better. Her nausea seems improved. Continue bariatric clear liquids. Ambulate. Discharge late tomorrow or . Objective - Vital Signs Vital signs: Vital Signs Temp 98.4 F 06/01/19 15:00 Pulse 64 06/01/19 15:51 Resp 17 06/01/19 15:00 BP 125/77 06/01/19 15:00 Pulse Ox 95 06/01/19 15:00 Intake & Output 06/01/19 06/01/19 06/02/19 06:59 18:59 06:59 Intake Total 1021.2 Balance 1021.2 Weight 111 kg Intake: Intake, IV Titration 1021.2 Amount Mvi, Adult No.4 with Vit 1021.2 K 10 ml Thiamine 100 mg Folic Acid 1 mg Potassium Chloride 20 meq In Sodium Chloride 0.9% 1, 000 ml @ 100 mls/hr IV . BY DURATION [facility] Rx#: [id number] Other: Voiding Method Toilet Toilet # Voids 3 1 - Labs CBC & Chem 7: 06/01/19 07:46 06/01/19 07:46 Labs: Abnormal Lab Results - Last 24 Hours (Table) 06/01/19 06/01/19 Range/Units 07:46 07:46 WBC 16.3 H (3.8-10.6) k/uL Neutrophils # 13.8 H (1.3-7.7) k/uL BUN 5 L (7-17) mg/dL Assessment and Plan (1) Morbid obesity Current Visit: Yes Status: Acute Code(s): E66.01 - MORBID (SEVERE) OBESITY DUE TO EXCESS CALORIES SNOMED Code(s): 532243748
[2019-06-01] MEDS: METOCLOPRAMIDE 5 MG/ML 2 ML VIAL IVP PRN ×2 (14:01→20:30)
[2019-06-01] MEDS: KETOROLAC 30 MG/ML 1 ML VIAL IVP PRN ×2 (14:09→20:30)
[2019-06-01] MEDS: HYOSCYAMINE ORAL DROPS 1.875 MG/15 ML BOTTLE PO PRN ×2 (14:55→20:40)
[2019-06-01] MEDS: SERTRALINE 50 MG TAB PO SCH (19:10)
[2019-06-01] MEDS: SIMETHICONE 80 MG CHEWABLE PO PRN (19:12)
--- NOTE | 2019-06-01 19:19 | PN ---
PROGRESS NOTE DATE OF SERVICE: 06/01/2019. This 29-year-old woman who was admitted after laparoscopic sleeve gastrectomy is being closely monitored at this time. Upper GI series showed postsurgical changes. No chest pain. No palpitations. No fever. EXAM: Alert and oriented x3. Pulse is 57, blood pressure 127/77, respiration 17, temperature 98.4, pulse ox 94% on room air. HEENT: Conjunctivae normal. NECK: No jugular venous distention. CARDIOVASCULAR SYSTEM: S1, S2 muffled. RESPIRATORY SYSTEM: Breath sounds diminished at the bases. A few rhonchi. No crackles. ABDOMEN soft, status post surgery. LEGS are no edema. No swelling. CENTRAL NERVOUS SYSTEM: No focal deficits. LABS: WBC 16.2, hemoglobin 12.4. ASSESSMENT: 1. Status post laparoscopic sleeve gastrectomy with repair of hiatal hernia. 2. History of migraine. 3. History of palpitations. 4. History of anxiety, depression. 5. Remote history of nicotine dependence. RECOMMENDATIONS AND DISCUSSION: Recommend to continue current medications, management and symptomatic treatment, continue to monitor. Otherwise continue incentive spirometry. Continue the rest of the medications. DVT prophylaxis. Further recommendations to follow. MMODL / IJN: [id number] /
[2019-06-02] MEDS: KETOROLAC 30 MG/ML 1 ML VIAL IVP PRN ×2 (03:11→11:29)
[2019-06-02] MEDS: HYOSCYAMINE ORAL DROPS 1.875 MG/15 ML BOTTLE PO PRN ×2 (03:11→10:08)
[2019-06-02] MEDS: ENOXAPARIN 40 MG/0.4 ML SYRINGE SQ SCH (03:11)
[2019-06-02] MEDS: METOCLOPRAMIDE 5 MG/ML 2 ML VIAL IVP PRN ×2 (03:11→11:32)
[2019-06-02] MEDS: 1: MVI, ADULT NO.4 WITH VIT K 10 ML, THIAMINE 100 MG, FOLIC ACID 1 MG, POTASSIUM CHLORID IV SCH ×6 (05:48)
[2019-06-02] MEDS: ALBUTEROL NEBULIZED 2.5 MG/3 ML INHALATION SCH ×3 (07:13→16:43)
[2019-06-02] MEDS: FLUTICASONE 50MCG/SPRAY NASAL 16GM NASAL SCH (07:29)
[2019-06-02] MEDS: PANTOPRAZOLE 40 MG/10 ML VIAL IV SCH (07:29)
[2019-06-02 07:49] VITALS: BP 107/63; RESP 17; TEMP 98.5
[2019-06-02] MEDS: SIMETHICONE 80 MG CHEWABLE PO PRN (10:08)
[2019-06-02 11:44] LABS: Basophils % (A) 0 %; Eosinophils % (A) 0 %; HCT 35.3 % (34.0-46.0); HGB 11.4 gm/dL (11.4-16.0); Lymphocytes # (A) 1.8 k/uL (1.0-4.8); Lymphocytes % (A) 25 %; MCH 27.8 pg (25.0-35.0); MCHC 32.4 g/dL (31.0-37.0); MCV 85.8 fL (80.0-100.0); Mean Platelet Volume 6.3; Monocytes # (A) 0.3 k/uL (0-1.0); Monocytes % (A) 4 %; Neutrophils # (A) 5.2 k/uL (1.3-7.7); Neutrophils % (A) 69 %; Platelet Count 304 k/uL (150-450); RBC 4.11 m/uL (3.80-5.40); RDW 14.1 % (11.5-15.5); WBC 7.5 k/uL (3.8-10.6)
[2019-06-02 11:57] VITALS: PULSE 68
--- NOTE | 2019-06-02 12:48 | P.PN ---
Subjective Progress Note Date: 06/02/19 Principal diagnosis: Morbid obesity Patient doing better today. Still with some gassy discomfort. White blood cell count normal. 12 ounces of liquid so far today. Objective - Vital Signs Vital signs: Vital Signs Temp 98.5 F 06/02/19 07:00 Pulse 68 06/02/19 11:57 Resp 17 06/02/19 08:00 BP 107/63 06/02/19 07:00 Pulse Ox 94 L 06/02/19 07:00 Intake & Output 06/01/19 06/02/19 06/02/19 18:59 06:59 18:59 Intake Total 1021.2 1000 Balance 1021.2 1000 Weight 111 kg Intake: Intake, IV Titration 1021.2 1000 Amount 0.9% NaCl with KCl 20 Meq 1000 /l 1,000 ml @ 100 mls/hr IV .BY DURATION [facility] Rx#: [id number] Mvi, Adult No.4 with Vit 1021.2 K 10 ml Thiamine 100 mg Folic Acid 1 mg Potassium Chloride 20 meq In Sodium Chloride 0.9% 1, 000 ml @ 100 mls/hr IV . BY DURATION [facility] Rx#: [id number] Other: Voiding Method Toilet Toilet Toilet # Voids 1 2 - Exam Abdomen: Soft, nondistended, incisions clean and dry - Labs CBC & Chem 7: 06/02/19 10:38 06/01/19 07:46 Assessment and Plan (1) Morbid obesity Narrative/Plan: Continue bariatric clears. Monitor intake today. Possible discharge later today or tomorrow. Current Visit: Yes Status: Acute Code(s): E66.01 - MORBID (SEVERE) OBESITY DUE TO EXCESS CALORIES SNOMED Code(s): 068203229
--- NOTE | 2019-06-02 15:17 | PN ---
PROGRESS NOTE DATE OF SERVICE: 06/02/2019 This is a 29-year-old woman who was admitted after laparoscopic sleeve gastrectomy with repair of hiatal hernia, is improving significantly. No chest pain. No palpitations. No fever. PHYSICAL EXAM: Alert and oriented x3. Pulse is 75, blood pressure is 107/73, respirations 17, temperature 98.4, pulse ox 94% on room air. HEENT: Conjunctivae normal. NECK: No jugular venous distention. CARDIOVASCULAR SYSTEM: S1, S2 muffled. RESPIRATORY SYSTEM: Breath sounds diminished at the bases, a few rhonchi, no crackles. ABDOMEN: Soft, status post surgery. LEGS: No edema, no swelling. LABS: WBC is 11.2, hemoglobin is 11.4. ASSESSMENT: 1. Status post laparoscopic sleeve gastrectomy with repair of hiatal hernia. 2. History of migraines. 3. History of palpitation. 4. History of anxiety, depression. 5. Remote history of nicotine dependence. RECOMMENDATION: Recommend to continue current medications, continue with the monitoring and symptomatic treatment, continue incentive spirometry. Resume the home medications. Closely follow up with Dr. Medina, who is the primary physician after discharge. Further recommendations to follow. MMODL / IJN: [id number] /
--- NOTE | 2019-06-02 18:03 | P.DS ---
Providers Date of admission: 05/31/19 09:34 Expected date of discharge: 06/02/19 Attending physician: Yobany Lauren Consults: 05/31/19 14:09 Consult Physician Routine Consulting Provider: Khalif Liu Consult Reason/Comments: Medical management Do you want consulting provider notified?: Yes Primary care physician: Peri Medina - Discharge Diagnosis(es) (1) Morbid obesity Refer to today's progress note. Patient minute for sleeve gastrectomy. Doing well at this time. Tolerating liquids. Will discharge. Follow-up one week. Status: Acute Plan - Discharge Summary Discharge Rx Participant: No New Discharge Prescriptions: New Bisacodyl [Dulcolax] 5 mg PO DAILY PRN #10 tablet. PRN Reason: Constipation Simethicone 40 mg/0.6 ml Drops [Mylicon Drops] 40 mg PO PCHS PRN #30 ml PRN Reason: gas Hydrocodone/Acetaminophen [[facility] [place] 5-325] 1 tab PO Q6HR PRN 3 Days #12 tab PRN Reason: Pain Omeprazole 40 mg PO DAILY #30 cap Ondansetron Odt [Zofran Odt] 4 mg PO Q8HR PRN #9 tab PRN Reason: Nausea Continue Sertraline [Zoloft] 50 mg PO HS Fluticasone Nasal [place] [Flonase Nasal [place]] 2 spray NASAL DAILY Loratadine [Claritin] 10 mg PO DAILY Discharge Medication List Fluticasone Nasal [place] [Flonase Nasal [place]] 2 spray NASAL DAILY 04/28/19 [History] Loratadine [Claritin] 10 mg PO DAILY 04/28/19 [History] Sertraline [Zoloft] 50 mg PO HS 04/28/19 [History] Bisacodyl [Dulcolax] 5 mg PO DAILY PRN #10 tablet. 06/01/19 [Rx] Hydrocodone/Acetaminophen [[facility] [place] 5-325] 1 tab PO Q6HR PRN 3 Days #12 tab 06/01/19 [Rx] Omeprazole 40 mg PO DAILY #30 cap 06/01/19 [Rx] Ondansetron Odt [Zofran Odt] 4 mg PO Q8HR PRN #9 tab 06/01/19 [Rx] Simethicone 40 mg/0.6 ml Drops [Mylicon Drops] 40 mg PO PCHS PRN #30 ml 06/01/19 [Rx] [facility] [facility] Patient Instructions/Handouts: Laparoscopic Sleeve Gastrectomy (DC) Activity/Diet/Wound Care/Special Instructions: No driving while taking [place] No lifting over 10 pounds You may shower. No soaking or tub baths Very light activity until you are reevaluated at your follow up appointment with your surgeon Discharge Disposition: HOME SELF-CARE
== END 2019-06-02 17:02 | disposition home or self-care (01) | DRG 621 ==
LOC: 2ORMAIN 09:34 → 4SSUR 17:02
PROVIDERS: ADMIT Surgery; ATTEND Surgery
PROC: 0DB64Z3 Excision of Stomach, Percutaneous Endoscopic Approach, Vertical (ICD-10-PCS; principal; 2019-05-31 11:30)
DX: E66.01 Morbid (severe) obesity due to excess calories (principal); E28.2 Polycystic ovarian syndrome; F32.9 Major depressive disorder, single episode, unspecified; F41.9 Anxiety disorder, unspecified; K44.9 Diaphragmatic hernia without obstruction or gangrene; Z87.891 Personal history of nicotine dependence; Z68.35 Body mass index [BMI] 35.0-35.9, adult; Z79.51 Long term (current) use of inhaled steroids; Z79.899 Other long term (current) drug therapy; G43.909 Migraine, unspecified, not intractable, without status migrainosus
CPT/HCPCS: 74240; 80051; 81025; 82310; 82565; 83735; 84100; 84520; 85025; 88307; 94640; 94760; 94762

== ENCOUNTER 2019-06-02 23:56 | Observation (INO) | payer BC ==
[2019-06-03] MEDS ORDERED: MORPHINE SULFATE 4 MG/ML SYRINGE IV STA (00:17)
[2019-06-03] MEDS ORDERED: ONDANSETRON 4 MG/2 ML VIAL IVP STA (00:18)
--- NOTE | 2019-06-03 00:40 | ED ---
Abdominal Pain HPI - General Chief Complaint: Abdominal Pain Stated Complaint: post-op, abdominal pain Time Seen by Provider: 06/03/19 00:17 Source: patient Mode of arrival: ambulatory Limitations: no limitations - History of Present Illness Initial Comments: This patient is a 29-year-old woman who presents with complaint of diffuse abdominal pain that is been getting worse over the course of the evening and tonight. The patient did have a gastric sleeve surgery here by kelly Nick. She states that she was feeling pretty good so she requested to go home this afternoon although she was scheduled to be in the hospital through tomorrow. She states that after she got home, she started having diffuse cramping type abdominal pain. She did take one [place] at around 6 PM, and then one again that 11:30 PM, and states that those did not seem to be relieving her symptoms. She also has had a little bit of nausea. No fever. No cough or dyspnea. No chest pain or palpitations. No difficulty with urination. MD Complaint: abdominal pain -: hour(s) Location: diffuse Radiation: none Migration to: periumbilical Severity: moderate Quality: cramping Consistency: constant Improves With: other (Walking or rocking) Worsens With: nothing Associated Symptoms: nausea - Related Data Patient : No Home Medications Medication Instructions Recorded Confirmed Fluticasone Nasal [place] [Flonase 2 spray NASAL DAILY 04/28/19 06/08/19 Nasal [place]] Loratadine [Claritin] 10 mg PO DAILY 04/28/19 06/08/19 Sertraline [Zoloft] 50 mg PO HS 04/28/19 06/08/19 Previous Rx's Medication Instructions Recorded Bisacodyl [Dulcolax] 5 mg PO DAILY PRN #10 tablet. 06/01/19 Hydrocodone/Acetaminophen [[place] 1 tab PO Q6HR PRN 3 Days #12 tab 06/01/19 5-325] Omeprazole 40 mg PO DAILY #30 cap 06/01/19 Ondansetron Odt [Zofran Odt] 4 mg PO Q8HR PRN #9 tab 06/01/19 Simethicone 40 mg/0.6 ml Drops 40 mg PO PCHS PRN #30 ml 06/01/19 [Mylicon Drops] Hyoscyamine Sulfate [Levsin] 0.125 mg PO Q4H PRN #30 tab 06/04/19 traMADol HCl [Ultram] 50 mg PO Q4HR PRN 3 Days #18 tab 06/04/19 Allergies Allergy/AdvReac Type Severity Reaction Status Date / Time No Known Allergies Allergy Verified 06/08/19 14:50 Review of Systems ROS Statement: Those systems with pertinent positive or pertinent negative responses have been documented in the HPI. ROS Other: All systems not noted in ROS Statement are negative. Constitutional: Denies: fever, chills Respiratory: Denies: cough, dyspnea Cardiovascular: Denies: chest pain, palpitations, edema, syncope Gastrointestinal: Reports: abdominal pain, nausea. Denies: vomiting, diarrhea Genitourinary: Denies: dysuria, hematuria Musculoskeletal: Denies: back pain Skin: Denies: rash Neurological: Denies: headache, weakness, numbness Past Medical History Past Medical History: No Reported History Additional Past Medical History / Comment(s): past hx of occasional migraines, palpitations, History of Any Multi-Drug Resistant Organisms: None Reported Past Surgical History: Bariatric Surgery Additional Past Surgical History / Comment(s): oral surgery, EGD, gastric sleeve Past Anesthesia/Blood Transfusion Reactions: No Reported Reaction Past Psychological History: Anxiety, Depression Smoking Status: Former smoker Past Alcohol Use History: None Reported Past Drug Use History: None Reported - Past Family History Mother Family Medical History: No Reported History General Exam Limitations: no limitations General appearance: alert, in no apparent distress Head exam: Present: atraumatic, normocephalic Eye exam: Present: normal appearance. Absent: scleral icterus, conjunctival injection ENT exam: Present: normal oropharynx Neck exam: Present: normal inspection Respiratory exam: Present: normal lung sounds bilaterally. Absent: respiratory distress, wheezes, rales, rhonchi, stridor Cardiovascular Exam: Present: regular rate, normal rhythm, normal heart sounds. Absent: systolic murmur, diastolic murmur, rubs, gallop GI/Abdominal exam: Present: soft, normal bowel sounds, other (The patient's surgical incisions are clean, dry, and intact. No abnormal warmth or erythema.). Absent: distended, tenderness, guarding, rebound, rigid, mass Extremities exam: Present: normal inspection, normal capillary refill. Absent: pedal edema, calf tenderness Back exam: Present: normal inspection. Absent: CVA tenderness (R), CVA tenderness (L) Neurological exam: Present: alert Skin exam: Present: warm, dry, intact, normal color. Absent: rash Course Vital Signs 06/03/19 06/03/19 06/03/19 00:04 02:00 03:10 Temperature 98.2 F 98.8 F 97.7 F Pulse Rate 60 65 Pulse Rate [ 64 Pulse Oximetery ] Respiratory 20 18 15 Rate Blood Pressure 119/76 112/72 Blood Pressure 118/73 [Right Arm] O2 Sat by Pulse 99 98 94 L Oximetry Medical Decision Making - Lab Data Result diagrams: 06/03/19 01:03 06/03/19 01:03 Lab Results 06/03/19 06/03/19 06/03/19 Range/Units 01:03 01:03 01:03 WBC 9.4 (3.8-10.6) k/uL RBC 4.08 (3.80-5.40) m/uL Hgb 11.7 (11.4-16.0) gm/dL Hct 34.6 (34.0-46.0) % MCV 84.9 (80.0-100.0) fL MCH 28.8 (25.0-35.0) pg MCHC 33.9 (31.0-37.0) g/dL RDW 13.9 (11.5-15.5) % Plt Count 326 (150-450) k/uL Neutrophils % 67 % Lymphocytes % 26 % Monocytes % 5 % Eosinophils % 0 % Basophils % 0 % Neutrophils # 6.3 (1.3-7.7) k/uL Lymphocytes # 2.5 (1.0-4.8) k/uL Monocytes # 0.5 (0-1.0) k/uL Eosinophils # 0.0 (0-0.7) k/uL Basophils # 0.0 (0-0.2) k/uL Sodium 138 (137-145) mmol/L Potassium 4.6 (3.5-5.1) mmol/L Chloride 108 H (98-107) mmol/L Carbon Dioxide 21 L (22-30) mmol/L Anion Gap 9 mmol/L BUN 7 (7-17) mg/dL Creatinine 0.62 (0.52-1.04) mg/dL Est GFR (CKD-EPI)AfAm >90 (>60 ml/min/1.73 sqM) Est GFR (CKD-EPI)NonAf >90 (>60 ml/min/1.73 sqM) Glucose 83 (74-99) mg/dL Calcium 9.1 (8.4-10.2) mg/dL Total Bilirubin 0.9 (0.2-1.3) mg/dL AST 80 H (14-36) U/L ALT 72 H (9-52) U/L Alkaline Phosphatase 67 (38-126) U/L Total Protein 7.5 (6.3-8.2) g/dL Albumin 4.3 (3.5-5.0) g/dL Amylase 38 (30-110) U/L Lipase 208 (23-300) U/L Urine Color Urine Appearance (Clear) Urine pH (5.0-8.0) Ur Specific [place] (1.001-1.035) Urine Protein (Negative) Urine Glucose (UA) (Negative) Urine Ketones (Negative) Urine Blood (Negative) Urine Nitrite (Negative) Urine Bilirubin (Negative) Urine Urobilinogen (<2.0) mg/dL Ur Leukocyte Esterase (Negative) Urine RBC (0-5) /hpf Urine WBC (0-5) /hpf Ur Squamous Epith Cells (0-4) /hpf Urine Mucus (None) /hpf Urine HCG, Qual Not Detected (Not Detectd) 06/03/19 Range/Units 01:03 WBC (3.8-10.6) k/uL RBC (3.80-5.40) m/uL Hgb (11.4-16.0) gm/dL Hct (34.0-46.0) % MCV (80.0-100.0) fL MCH (25.0-35.0) pg MCHC (31.0-37.0) g/dL RDW (11.5-15.5) % Plt Count (150-450) k/uL Neutrophils % % Lymphocytes % % Monocytes % % Eosinophils % % Basophils % % Neutrophils # (1.3-7.7) k/uL Lymphocytes # (1.0-4.8) k/uL Monocytes # (0-1.0) k/uL Eosinophils # (0-0.7) k/uL Basophils # (0-0.2) k/uL Sodium (137-145) mmol/L Potassium (3.5-5.1) mmol/L Chloride (98-107) mmol/L Carbon Dioxide (22-30) mmol/L Anion Gap mmol/L BUN (7-17) mg/dL Creatinine (0.52-1.04) mg/dL Est GFR (CKD-EPI)AfAm (>60 ml/min/1.73 sqM) Est GFR (CKD-EPI)NonAf (>60 ml/min/1.73 sqM) Glucose (74-99) mg/dL Calcium (8.4-10.2) mg/dL Total Bilirubin (0.2-1.3) mg/dL AST (14-36) U/L ALT (9-52) U/L Alkaline Phosphatase (38-126) U/L Total Protein (6.3-8.2) g/dL Albumin (3.5-5.0) g/dL Amylase (30-110) U/L Lipase (23-300) U/L Urine Color Yellow Urine Appearance Cloudy H (Clear) Urine pH 6.0 (5.0-8.0) Ur Specific [place] 1.022 (1.001-1.035) Urine Protein Trace H (Negative) Urine Glucose (UA) Negative (Negative) Urine Ketones 2+ H (Negative) Urine Blood Negative (Negative) Urine Nitrite Negative (Negative) Urine Bilirubin Negative (Negative) Urine Urobilinogen 2.0 (<2.0) mg/dL Ur Leukocyte Esterase Large H (Negative) Urine RBC 3 (0-5) /hpf Urine WBC 12 H (0-5) /hpf Ur Squamous Epith Cells 11 H (0-4) /hpf Urine Mucus Many H (None) /hpf Urine HCG, Qual (Not Detectd) Disposition Clinical Impression: Abdominal pain Disposition: ADMITTED IP TO THIS [facility] Condition: Stable
[2019-06-03] MEDS ORDERED: IOPAMIDOL CONTRAST (ORAL USE) VIAL PO PRN (01:11)
[2019-06-03 01:41] LABS: Basophils % (A) 0 %; Eosinophils % (A) 0 %; HCT 34.6 % (34.0-46.0); HGB 11.7 gm/dL (11.4-16.0); Lymphocytes # (A) 2.5 k/uL (1.0-4.8); Lymphocytes % (A) 26 %; MCH 28.8 pg (25.0-35.0); MCHC 33.9 g/dL (31.0-37.0); MCV 84.9 fL (80.0-100.0); Mean Platelet Volume 5.7; Monocytes # (A) 0.5 k/uL (0-1.0); Monocytes % (A) 5 %; Neutrophils # (A) 6.3 k/uL (1.3-7.7); Neutrophils % (A) 67 %; Platelet Count 326 k/uL (150-450); RBC 4.08 m/uL (3.80-5.40); RDW 13.9 % (11.5-15.5); WBC 9.4 k/uL (3.8-10.6)
[2019-06-03 01:46] LABS: Appearance,Urine Cloudy (Clear); Bilirubin,Urine Negative (Negative); Blood,Urine Negative (Negative); Color,Urine Yellow; Glucose,Urine (UA) Negative (Negative); Ketones,Urine 2+ (Negative); Leukocyte Esterase,Urine Large (Negative); Mucus,Urine Many /hpf; Nitrite,Urine Negative (Negative); Protein,Urine Trace (Negative); RBC,Urine 3 /hpf (0-5); Specific Gravity,Urine 1.022 (1.001-1.035); Squamous Epithelial Cell,Urine 11 /hpf (0-4); WBC,Urine 12 /hpf (0-5)
[2019-06-03 01:52] LABS: African American GFR (CKD) >90 (>60 ml/min/1.73 sqM); Amylase 38 U/L (30-110); Anion Gap 9 mmol/L; Blood Urea Nitrogen 7 mg/dL (7-17); Calcium 9.1 mg/dL (8.4-10.2); Carbon Dioxide 21 mmol/L (22-30); Chloride 108 mmol/L (98-107); Glucose 83 mg/dL (74-99); Non-African American GFR(CKD) >90 (>60 ml/min/1.73 sqM); Sodium 138 mmol/L (137-145); Total Bilirubin 0.9 mg/dL (0.2-1.3)
[2019-06-03 02:08] LABS: ALT 72 U/L (9-52); AST 80 U/L (14-36); Albumin 4.3 g/dL (3.5-5.0); Alkaline Phosphatase 67 U/L (38-126); Potassium 4.6 mmol/L (3.5-5.1); Total Protein 7.5 g/dL (6.3-8.2)
--- NOTE | 2019-06-03 02:19 | CT ---
EXAMINATION TYPE: CT abdomen pelvis wo con DATE OF EXAM: 06/03/2019 COMPARISON: None HISTORY: Patient presents with post op abdominal pain. CT DLP: 1382 mGycm Automated exposure control for dose reduction was used. TECHNIQUE: Helical acquisition of images was performed from the lung bases through the pelvis. FINDINGS: There is some linear density at the lung bases related to patchy atelectasis. Heart size is normal. T here is minimal pleural fluid. There is no pericardial effusion. Liver spleen pancreas gallbladder appear normal. Bile ducts are not dilated. There is bariatric gastr ic surgery noted. There is no adrenal mass. Kidneys have normal size. There is no hydronephrosis. There is no retroperi toneal adenopathy. Ureters are not dilated. Bladder distends smoothly. There is no inguinal hernia. U terus is anteverted. The cul-de-sac is clear fluid. There is contrast in the appendix which appears n ormal. There is no ascites. There is a mild pneumoperitoneum consistent with recent surgery. Lumbar vertebra have normal spacing and alignment. Posterior elements are intact. Bony pelvis is inta ct. IMPRESSION: POSTSURGICAL CHANGES WITH SMALL PNEUMOPERITONEUM. SMALL PLEURAL EFFUSIONS AND BASILAR PATCHY ATELECTASIS. NORMAL APPENDIX. NO ORAL CONTRAST EXTRAVASATI ON SEEN. NO EVIDENCE OF AN ABSCESS.
[2019-06-03] MEDS ORDERED: NALOXONE 0.4 MG/ML 1 ML VIAL IV PRN (02:24)
[2019-06-03] MEDS ORDERED: ACETAMINOPHEN TAB 325 MG TAB PO PRN (02:24)
[2019-06-03] MEDS ORDERED: ONDANSETRON 4 MG/2 ML VIAL IVP PRN ×2 (02:24→17:09)
[2019-06-03] MEDS ORDERED: MORPHINE SULFATE 4 MG/ML SYRINGE IV PRN (02:24)
[2019-06-03] MEDS ORDERED: BISACODYL 5 MG TABLET.DR PO PRN (02:25)
[2019-06-03] MEDS: HYDROmorphone 0.5 MG/0.5 ML SYRINGE IVP PRN ×3 (03:04→14:18)
[2019-06-03] MEDS: SODIUM CHLORIDE 0.9% 1,000 ML IV SCH ×4 (03:08→21:27)
[2019-06-03] MEDS: FLUTICASONE 50MCG/SPRAY NASAL 16GM NASAL SCH (08:56)
[2019-06-03] MEDS: FAMOTIDINE 20 MG TAB PO SCH ×3 (08:56→20:10)
[2019-06-03] MEDS: PANTOPRAZOLE 40 MG TABLET PO SCH (08:56)
[2019-06-03] MEDS: LORATADINE 10 MG TAB PO SCH (08:56)
[2019-06-03] MEDS: SIMETHICONE 40 MG/0.6 ML DROPS 2,000 MG/30 ML BOTTLE PO PRN ×2 (09:00→19:00)
--- NOTE | 2019-06-03 12:27 | P.GSHP ---
History of Present Illness H&P Date: 06/03/19 Chief Complaint: Abdominal pain Patient was seen yesterday and rounds. She was advised to spend one more night however in the afternoon she was doing better. Her pain was improved and she was tolerating her liquids with better volume. She was quite anxious to go home yesterday and I released her over the phone. Apparently she went home continue to drink clear liquids then experienced gassy crampy upper mid abdominal pain. She came back to the hospital for evaluation. CT abdomen showed no evidence of leak. Labs are normal. Doing better this morning. Pain is improved. Continues to tolerate liquids at this time. - Review of Systems Comment: The patient denies any acute changes in vision or hearing, no dysphagia or suleiman nophagia, no chest pain or shortness of breath, no dysuria or hematuria, no headache, no runny nose, no rectal bleeding or melena, no unexplained weight loss Past Medical History Past Medical History: No Reported History Additional Past Medical History / Comment(s): past hx of occasional migraines, palpitations, History of Any Multi-Drug Resistant Organisms: None Reported Past Surgical History: Bariatric Surgery Additional Past Surgical History / Comment(s): oral surgery, EGD, gastric sleeve Past Anesthesia/Blood Transfusion Reactions: No Reported Reaction Past Psychological History: Anxiety, Depression Smoking Status: Former smoker Past Alcohol Use History: None Reported Additional Past Alcohol Use History / Comment(s): quit smoking 06/2018, smoked for 6 yrs, < 1 PPD Past Drug Use History: None Reported - Past Family History Mother Family Medical History: No Reported History Medications and Allergies Home Medications Medication Instructions Recorded Confirmed Type Fluticasone Nasal [place] [Flonase 2 spray NASAL DAILY 04/28/19 06/03/19 History Nasal [place]] Loratadine [Claritin] 10 mg PO DAILY 04/28/19 06/03/19 History Sertraline [Zoloft] 50 mg PO HS 04/28/19 06/03/19 History Bisacodyl [Dulcolax] 5 mg PO DAILY PRN #10 tablet. 06/01/19 06/03/19 Rx Hydrocodone/Acetaminophen [[place] 1 tab PO Q6HR PRN 3 Days #12 tab 06/01/19 06/03/19 Rx 5-325] Omeprazole 40 mg PO DAILY #30 cap 06/01/19 06/03/19 Rx Ondansetron Odt [Zofran Odt] 4 mg PO Q8HR PRN #9 tab 06/01/19 06/03/19 Rx Simethicone 40 mg/0.6 ml Drops 40 mg PO PCHS PRN #30 ml 06/01/19 06/03/19 Rx [Mylicon Drops] Allergies Allergy/AdvReac Type Severity Reaction Status Date / Time No Known Allergies Allergy Verified 06/03/19 07:20 Surgical - Exam Vital Signs Temp Pulse Resp BP Pulse Ox 98.2 F 60 20 119/76 99 06/03/19 00:04 06/03/19 00:04 06/03/19 00:04 06/03/19 00:04 06/03/19 00:04 Physical exam: General: Well-developed, well-nourished HEENT: Normocephalic, sclerae nonicteric Abdomen: Incisions clean and dry, mild tenderness upper mid abdomen, nondistended Extremities: No edema Neuro: Alert and oriented Results - Labs 06/03/19 01:03 06/03/19 01:03 Abnormal Lab Results - Last 24 Hours (Table) 06/03/19 06/03/19 Range/Units 01:03 01:03 Chloride 108 H (98-107) mmol/L Carbon Dioxide 21 L (22-30) mmol/L AST 80 H (14-36) U/L ALT 72 H (9-52) U/L Urine Appearance Cloudy H (Clear) Urine Protein Trace H (Negative) Urine Ketones 2+ H (Negative) Ur Leukocyte Esterase Large H (Negative) Urine WBC 12 H (0-5) /hpf Ur Squamous Epith Cells 11 H (0-4) /hpf Urine Mucus Many H (None) /hpf Microbiology - Last 24 Hours (Table) 06/03/19 01:03 Urine Culture - Preliminary Urine,Voided Diabetes panel 06/03/19 Range/Units 01:03 Sodium 138 (137-145) mmol/L Potassium 4.6 (3.5-5.1) mmol/L Chloride 108 H (98-107) mmol/L Carbon Dioxide 21 L (22-30) mmol/L BUN 7 (7-17) mg/dL Creatinine 0.62 (0.52-1.04) mg/dL Glucose 83 (74-99) mg/dL Calcium 9.1 (8.4-10.2) mg/dL AST 80 H (14-36) U/L ALT 72 H (9-52) U/L Alkaline Phosphatase 67 (38-126) U/L Total Protein 7.5 (6.3-8.2) g/dL Albumin 4.3 (3.5-5.0) g/dL Calcium panel 06/03/19 Range/Units 01:03 Calcium 9.1 (8.4-10.2) mg/dL Albumin 4.3 (3.5-5.0) g/dL Pituitary panel 06/03/19 Range/Units 01:03 Sodium 138 (137-145) mmol/L Potassium 4.6 (3.5-5.1) mmol/L Chloride 108 H (98-107) mmol/L Carbon Dioxide 21 L (22-30) mmol/L BUN 7 (7-17) mg/dL Creatinine 0.62 (0.52-1.04) mg/dL Glucose 83 (74-99) mg/dL Calcium 9.1 (8.4-10.2) mg/dL Adrenal panel 06/03/19 Range/Units 01:03 Sodium 138 (137-145) mmol/L Potassium 4.6 (3.5-5.1) mmol/L Chloride 108 H (98-107) mmol/L Carbon Dioxide 21 L (22-30) mmol/L BUN 7 (7-17) mg/dL Creatinine 0.62 (0.52-1.04) mg/dL Glucose 83 (74-99) mg/dL Calcium 9.1 (8.4-10.2) mg/dL Total Bilirubin 0.9 (0.2-1.3) mg/dL AST 80 H (14-36) U/L ALT 72 H (9-52) U/L Alkaline Phosphatase 67 (38-126) U/L Total Protein 7.5 (6.3-8.2) g/dL Albumin 4.3 (3.5-5.0) g/dL Assessment and Plan (1) Abdominal pain Narrative/Plan: Patient readmitted with abdominal pain. He is be doing well at this time. All things considered Will plan observation overnight. Continue bariatric clears. Current Visit: Yes Status: Acute Code(s): R10.9 - UNSPECIFIED ABDOMINAL PAIN SNOMED Code(s): 54176109
[2019-06-03] MEDS: HYOSCYAMINE ORAL DROPS 1.875 MG/15 ML BOTTLE PO PRN (14:17)
[2019-06-03] MEDS: METOCLOPRAMIDE 5 MG/ML 2 ML VIAL IVP PRN (18:58)
[2019-06-03] MEDS: KETOROLAC 30 MG/ML 1 ML VIAL IVP PRN (18:58)
[2019-06-03] MEDS ORDERED: SERTRALINE 50 MG TAB PO SCH (21:00)
[2019-06-04] MEDS: KETOROLAC 30 MG/ML 1 ML VIAL IVP PRN (00:55)
[2019-06-04] MEDS: METOCLOPRAMIDE 5 MG/ML 2 ML VIAL IVP PRN (00:55)
[2019-06-04] MEDS: SIMETHICONE 40 MG/0.6 ML DROPS 2,000 MG/30 ML BOTTLE PO PRN ×3 (00:56→08:25)
[2019-06-04 07:11] VITALS: BP 104/70; PULSE 57; RESP 18; TEMP 98.1
[2019-06-04] MEDS: PANTOPRAZOLE 40 MG TABLET PO SCH (08:20)
[2019-06-04] MEDS: HYOSCYAMINE ORAL DROPS 1.875 MG/15 ML BOTTLE PO PRN (08:20)
[2019-06-04] MEDS: FAMOTIDINE 20 MG TAB PO SCH (08:20)
[2019-06-04] MEDS: LORATADINE 10 MG TAB PO SCH (08:20)
[2019-06-04] MEDS: FLUTICASONE 50MCG/SPRAY NASAL 16GM NASAL SCH (08:21)
[2019-06-04] MEDS: SODIUM CHLORIDE 0.9% 1,000 ML IV SCH (09:15)
--- NOTE | 2019-06-04 09:40 | P.PN ---
<YumikoMadeleine Carol - Last Filed: 06/04/19 09:38> Subjective Progress Note Date: 06/04/19 CHIEF COMPLAINT: Postoperative pain HISTORY OF PRESENT ILLNESS: Patient seen and examined at the bedside this morning. She reports her pain has significantly improved. She is tolerating liquid diet. Passing flatus. Denies nausea or vomiting. Vital signs have been stable PHYSICAL EXAM: VITAL SIGNS: Reviewed. GENERAL: Well-developed in no acute distress. HEENT: No sclera icterus. Extraocular movements grossly intact. Moist buccal mucosa. Head is atraumatic, normocephalic. ABDOMEN: Soft. Nondistended. Nontender. Laparoscopic surgical sites clean dry and intact without drainage. NEUROLOGIC: Alert and oriented. Cranial nerves II through XII grossly intact. ASSESSMENT: 1. Postoperative pain 2. Recent sleeve gastrectomy PLAN: Continue liquid diet Pain control Rx for Hyoscyamine and Ultram sent to patient's pharmacy Anticipate discharge home this afternoon Nurse practitioner note has been reviewed by physician. Signing provider agrees with the documented findings, assessment, and plan of care. Objective - Vital Signs Vital signs: Vital Signs Temp 98.1 F 06/04/19 07:11 Pulse 57 L 06/04/19 07:11 Resp 18 06/04/19 07:11 BP 104/70 06/04/19 07:11 Pulse Ox 97 06/04/19 07:11 Intake & Output 06/03/19 06/04/19 06/04/19 18:59 06:59 18:59 Intake Total 1000 240 300 Balance 1000 240 300 Intake: IV 1000 Sodium Chloride 0.9% 1, 1000 000 ml @ 125 mls/hr IV . Q8H [facility] Rx#:[id number] Oral 240 300 Other: Voiding Method Toilet # Voids 3 # Bowel Movements 1 - Labs CBC & Chem 7: 06/03/19 01:03 06/03/19 01:03 Labs: Microbiology - Last 24 Hours (Table) 06/03/19 01:03 Urine Culture - Preliminary Urine,Voided <Yobany Lauren - Last Filed: 06/04/19 13:08> Subjective As above. Patient states her pain is improved. She would like to go home today. Likely discharge. Objective - Vital Signs Vital signs: Vital Signs Temp 98.1 F 06/04/19 07:11 Pulse 57 L 06/04/19 07:11 Resp 18 06/04/19 07:11 BP 104/70 06/04/19 07:11 Pulse Ox 97 06/04/19 07:11 Intake & Output 06/03/19 06/04/19 06/04/19 18:59 06:59 18:59 Intake Total 1000 240 300 Balance 1000 240 300 Intake: IV 1000 Sodium Chloride 0.9% 1, 1000 000 ml @ 125 mls/hr IV . Q8H [facility] Rx#:[id number] Oral 240 300 Other: Voiding Method Toilet # Voids 3 # Bowel Movements 1 - Labs CBC & Chem 7: 06/03/19 01:03 06/03/19 01:03 Labs: Microbiology - Last 24 Hours (Table) 06/03/19 01:03 Urine Culture - Preliminary Urine,Voided Assessment and Plan (1) Abdominal pain Current Visit: Yes Status: Acute Code(s): R10.9 - UNSPECIFIED ABDOMINAL PAIN SNOMED Code(s): 11607323
--- NOTE | 2019-06-04 12:15 | P.DS ---
<YumikoMadeleine Medina - Last Filed: 06/04/19 12:11> Providers Expected date of discharge: 06/04/19 Hospital Course: 29 year old female who recently underwent laparoscopic sleeve gastrectomy on 05/31/2019. Patient was discharged home in stable condition on 06/02/2019. She presented back to the emergency room on 06/03/[address] abdomen pelvis was completed and negative for acute process. She has been tolerating liquid diet. Her pain is now controlled on oral medications. She is stable for discharge home today. Please see EMR for further hospital course details. Discharge Diagnosis: 1. Postoperative pain 2. Recent sleeve gastrectomy Nurse practitioner note has been reviewed by physician. Signing provider agrees with the documented findings, assessment, and plan of care. Patient Condition at Discharge: Stable Plan - Discharge Summary Discharge Rx Participant: No New Discharge Prescriptions: New RX: Hyoscyamine Sulfate [Levsin] 0.125 mg PO Q4H PRN #30 tab PRN Reason: gas traMADol HCl [Ultram] 50 mg PO Q4HR PRN 3 Days #18 tab PRN Reason: Pain No Action RX: Sertraline [Zoloft] 50 mg PO HS RX: Fluticasone Nasal [place] [Flonase Nasal [place]] 2 spray NASAL DAILY RX: Loratadine [Claritin] 10 mg PO DAILY Bisacodyl [Dulcolax] 5 mg PO DAILY PRN #10 tablet.dr PRN Reason: Constipation RX: Simethicone 40 mg/0.6 ml Drops [Mylicon Drops] 40 mg PO PCHS PRN #30 ml PRN Reason: gas Hydrocodone/Acetaminophen [[place] 5-325] 1 tab PO Q6HR PRN 3 Days #12 tab PRN Reason: Pain RX: Omeprazole 40 mg PO DAILY #30 cap Ondansetron Odt [Zofran Odt] 4 mg PO Q8HR PRN #9 tab PRN Reason: Nausea Discharge Medication List RX: Fluticasone Nasal [place] [Flonase Nasal [place]] 2 spray NASAL DAILY 04/28/19 [History] RX: Loratadine [Claritin] 10 mg PO DAILY 04/28/19 [History] RX: Sertraline [Zoloft] 50 mg PO HS 04/28/19 [History] Bisacodyl [Dulcolax] 5 mg PO DAILY PRN #10 tablet. 06/01/19 [Rx] Hydrocodone/Acetaminophen [[place] 5-325] 1 tab PO Q6HR PRN 3 Days #12 tab 06/01/19 [Rx] Ondansetron Odt [Zofran Odt] 4 mg PO Q8HR PRN #9 tab 06/01/19 [Rx] RX: Omeprazole 40 mg PO DAILY #30 cap 06/01/19 [Rx] RX: Simethicone 40 mg/0.6 ml Drops [Mylicon Drops] 40 mg PO PCHS PRN #30 ml 06/01/19 [Rx] RX: Hyoscyamine Sulfate [Levsin] 0.125 mg PO Q4H PRN #30 tab 06/04/19 [Rx] traMADol HCl [Ultram] 50 mg PO Q4HR PRN 3 Days #18 tab 06/04/19 [Rx] Follow up Appointment(s)/Referral(s): Peri Medina MD [Primary Care Provider] - 1-2 days (Office closed at time of discharge please call FridayJune 07 to set up a follow up appointment) Bariatric [place], [place] [NON-STAFF] - 1 Week (Office closed at time of discharge please call FridayJune 07 to set up a follow up appointment) Patient Instructions/Handouts: Nutrition after Bariatric Surgery (DC), Laparoscopic Sleeve Gastrectomy (DC) <Yobany Lauren - Last Filed: 06/04/19 13:07> Providers Date of admission: 06/03/19 02:25 Attending physician: Yobany Lauren Primary care physician: Peri Medina - Discharge Diagnosis(es) (1) Abdominal pain Current Visit: Yes Status: Acute
== END 2019-06-04 13:05 ==
LOC: EC 23:56 → 4SSUR 06-03 02:25
PROVIDERS: ADMIT Surgery; ATTEND Surgery
DX: G89.18 Other acute postprocedural pain (principal); Z98.84 Bariatric surgery status; F41.9 Anxiety disorder, unspecified; F32.9 Major depressive disorder, single episode, unspecified; Z79.899 Other long term (current) drug therapy; Z86.69 Personal history of other diseases of the nervous system and sense organs; Z98.890 Other specified postprocedural states; Z87.891 Personal history of nicotine dependence
CPT/HCPCS: 96376 ×2; 96375 ×2; 96374; 99285; 36415; 80053; 82150; 83690; 85025; 81001; 81025; 87086; 74176; G0378 ×2; J2270; J2765 ×2; J2405; J1885 ×2; J1170

== ENCOUNTER → 2019-06-08 | Outpatient (CLI) | payer BC ==
[2019-06-08 14:11] VITALS: BP 111/75; PULSE 85; RESP 16; TEMP 98.2; BMI 34.9
--- NOTE | 2019-06-08 15:18 | P.BASOAP ---
Subjective Progress Note Date: 06/08/19 Principal diagnosis: Morbid obesity Patient returns for 1 week postop visit. Patient went home only to return later that night with complaints of nausea and pain. CAT scan was normal. Doing better at this time. Minimal nausea. No vomiting. Denies heartburn. Tolerating 45-60 ounces of liquids per day. She states she is doing well with her protein intake approaching 80 g. Weight 252 down to 237. Heart rate normal. No fevers. Objective - Vital Signs Vital signs: Vital Signs Temp 98.2 F 06/08/19 14:08 Pulse 85 06/08/19 14:08 Resp 16 06/08/19 14:08 BP 111/75 06/08/19 14:08 Pulse Ox Intake & Output 06/07/19 06/08/19 06/08/19 18:59 06:59 18:59 Weight 107.501 kg - Exam Abdomen: Soft, nondistended, incisions clean and dry, minimal tenderness Assessment/Plan (1) Morbid obesity Narrative/Plan: Patient doing well overall. Continue dietary and exercise regimen. Follow-up 2 -3 weeks for reevaluation. We'll check one month labs at that time. Dietary to see patient today. Plan: Date: 06/08/19 Initial Weight: 106.282 kg Initial BMI: 34.6 Current Weight: 107.501 kg Current BMI: 34.9 Type of Surgery: Total Volume in Band: Previous Volume: Volume Removed: Volume Added: Band Size:
== END | disposition home or self-care (01) ==
LOC: BARWHC3 13:47
PROVIDERS: ATTEND Surgery
DX: E66.01 Morbid (severe) obesity due to excess calories (principal); Z68.34 Body mass index [BMI] 34.0-34.9, adult
CPT/HCPCS: 97802; 99211

== ENCOUNTER → 2019-06-22 | Outpatient (CLI) | payer BC ==
[2019-06-22 15:47] VITALS: BP 114/79; PULSE 85; RESP 16; TEMP 97.9; BMI 34.5
--- NOTE | 2019-06-22 21:19 | P.BASOAP ---
Subjective Progress Note Date: 06/22/19 Principal diagnosis: Morbid obesity Patient here today for reevaluation. Underwent surgery late May. Occasional episodes of stabbing left upper quadrant pain. No fevers. No tachycardia. She did have a postop CT scan that was re: normal. This was done the week of surgery. Marginal but adequate protein and fluid intake. 3 pound weight loss since last visit. No GERD symptoms. No vomiting. Objective - Vital Signs Vital signs: Vital Signs Temp 97.9 F 06/22/19 15:45 Pulse 85 06/22/19 15:45 Resp 16 06/22/19 15:45 BP 114/79 06/22/19 15:45 Pulse Ox Intake & Output 06/22/19 06/22/19 06/23/19 06:59 18:59 06:59 Weight 106.141 kg - Exam Abdomen: Soft, nondistended, incisions clean and dry, minimal tenderness Assessment/Plan (1) Morbid obesity Narrative/Plan: Patient doing well at this time. Patient will monitor her complaints of discomfort. She states they are improving. We'll order one month labs to be drawn next week. Follow-up 3-4 weeks. Plan: Date: 06/22/19 Initial Weight: 106.282 kg Initial BMI: 34.6 Current Weight: 106.141 kg Current BMI: 34.5 Type of Surgery: Total Volume in Band: Previous Volume: Volume Removed: Volume Added: Band Size:
== END | disposition home or self-care (01) ==
LOC: BARWHC3 15:25
PROVIDERS: ATTEND Surgery
DX: E66.01 Morbid (severe) obesity due to excess calories (principal); Z68.34 Body mass index [BMI] 34.0-34.9, adult
CPT/HCPCS: 97803; 99211

== ENCOUNTER → 2019-07-21 | Outpatient (CLI) | payer BC ==
[2019-07-21 17:24] LABS: HCT 38.8 % (34.0-46.0); HGB 13.1 gm/dL (11.4-16.0); MCH 29.1 pg (25.0-35.0); MCHC 33.7 g/dL (31.0-37.0); MCV 86.4 fL (80.0-100.0); Mean Platelet Volume 7.5; Platelet Count 257 k/uL (150-450); RDW 13.8 % (11.5-15.5)
[2019-07-22 00:19] LABS: % Iron Saturation 13.46 (12.00-45.00); African American GFR (CKD) 114.7 (60.0-200.0); Albumin 4.4 g/dL (3.80-4.90); Albumin/Globulin Ratio 2.2 (1.60-3.17); Anion Gap 9.5 mmol/L (4.00-12.00); BUN/Creat Ratio 12.5 Ratio (12.00-20.00); Calcium 9.2 mg/dL (8.7-10.3); Carbon Dioxide 23.5 mmol/L (21.6-31.8); Non-African American GFR(CKD) 98.9 (60.0-200.0); Potassium 3.7 mmol/L (3.5-5.5); Total Bilirubin 0.4 mg/dL (0.2-1.2); Total Protein 6.4 g/dL (6.2-8.2)
[2019-07-22 00:30] LABS: Folate, Serum 11.1 ng/mL
== END | disposition home or self-care (01) ==
LOC: LABWHC1 16:25
PROVIDERS: ATTEND Surgery
DX: K90.89 Other intestinal malabsorption (principal); E66.01 Morbid (severe) obesity due to excess calories; E55.9 Vitamin D deficiency, unspecified
CPT/HCPCS: 36415; 80053; 82306; 82607; 82746; 83540; 83550; 84425; 85027

== ENCOUNTER → 2019-08-03 | Outpatient (CLI) | payer BC ==
[2019-08-03 16:18] VITALS: BP 102/70; PULSE 64; RESP 16; TEMP 97.8; BMI 32.5
--- NOTE | 2019-08-03 21:24 | P.BASOAP ---
Subjective Progress Note Date: 08/03/19 Principal diagnosis: Morbid obesity Doing well since last visit. Lost another 14lbs. No GERD symptoms. She is now bleeding. Had food stuck once. She is due for labs. Objective - Vital Signs Vital signs: Vital Signs Temp 97.8 F 08/03/19 16:16 Pulse 64 08/03/19 16:16 Resp 16 08/03/19 16:16 BP 102/70 08/03/19 16:16 Pulse Ox Intake & Output 08/03/19 08/03/19 08/04/19 06:59 18:59 06:59 Weight 99.79 kg - Exam Abdomen: Soft, nontender, nondistended Assessment/Plan (1) Morbid obesity Narrative/Plan: Patient doing well at this time. Check labs at this time. Continue dietary and exercise regimen. Plan: Date: 08/03/19 Initial Weight: 106.282 kg Initial BMI: 34.6 Current Weight: 99.79 kg Current BMI: 32.5 Type of Surgery: Total Volume in Band: Previous Volume: Volume Removed: Volume Added: Band Size:
== END | disposition home or self-care (01) ==
LOC: BARWHC3 15:38
PROVIDERS: ATTEND Surgery
DX: E66.01 Morbid (severe) obesity due to excess calories (principal); Z68.32 Body mass index [BMI] 32.0-32.9, adult
CPT/HCPCS: 97803; 99211

== ENCOUNTER → 2020-05-09 | Outpatient (CLI) | payer BC ==
[2020-05-09 13:04] VITALS: BP 123/83; PULSE 65; RESP 16; TEMP 97.9; BMI 27.6
--- NOTE | 2020-05-09 14:13 | P.BASOAP ---
Subjective Progress Note Date: 05/09/20 Principal diagnosis: Morbid obesity Patient doing well today. 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 Last seen in July. She has lost 33 pounds since last visit. No nausea or vomiting. Complains of fatigue. She stopped her multivitamin but still takes B12 vitamin D and biotin. She is eating only one meal per day. Says her multivitamins give her an upset stomach. No nausea or vomiting. No reflux. Objective - Vital Signs Vital signs: Vital Signs Temp 97.9 F 05/09/20 12:59 Pulse 65 05/09/20 12:59 Resp 16 05/09/20 12:59 BP 123/83 05/09/20 12:59 Pulse Ox Intake & Output 05/08/20 05/09/20 05/09/20 18:59 06:59 18:59 Weight 84.822 kg - Exam Abdomen: Soft, nontender, nondistended Assessment/Plan (1) Morbid obesity Narrative/Plan: Patient overall doing well. Continue dietary and exercise regimen. Resume multivitamins as tolerated. Check annual labs at this time. Follow-up 3-6 months. Plan: Date: 05/09/20 Initial Weight: 106.282 kg Initial BMI: 34.6 Current Weight: 84.822 kg Current BMI: 27.6 Type of Surgery: Vertical Sleeve Gastrectomy Total Volume in Band: Previous Volume: Volume Removed: Volume Added: Band Size:
[2020-05-09 15:28] LABS: HCT 37.8 % (34.0-46.0); HGB 12.3 gm/dL (11.4-16.0); MCH 29.2 pg (25.0-35.0); MCHC 32.5 g/dL (31.0-37.0); MCV 89.9 fL (80.0-100.0); Mean Platelet Volume 7.4; Platelet Count 263 k/uL (150-450); RDW 12.7 % (11.5-15.5); WBC 6.4 k/uL (3.8-10.6)
[2020-05-10 02:44] LABS: African American GFR (CKD) 133.8 (60.0-200.0); Albumin 4.3 g/dL (3.80-4.90); Albumin/Globulin Ratio 1.95 (1.60-3.17); Anion Gap 8.2 mmol/L (4.00-12.00); BUN/Creat Ratio 12.86 Ratio (12.00-20.00); Calcium 9.1 mg/dL (8.7-10.3); Carbon Dioxide 23.8 mmol/L (21.6-31.8); Globulin 2.2 g/dL (1.6-3.3); Non-African American GFR(CKD) 115.4 (60.0-200.0); Potassium 4.4 mmol/L (3.5-5.5); Total Bilirubin 0.5 mg/dL (0.3-1.2); Total Protein 6.5 g/dL (6.2-8.2)
[2020-05-10 03:08] LABS: Folate, Serum 10.2 ng/mL
== END | disposition home or self-care (01) ==
LOC: BARWHC3 12:48
PROVIDERS: ATTEND Surgery
DX: Z48.815 Encounter for surgical aftercare following surgery on the digestive system (principal); E66.01 Morbid (severe) obesity due to excess calories; K90.89 Other intestinal malabsorption; E55.9 Vitamin D deficiency, unspecified; Z68.34 Body mass index [BMI] 34.0-34.9, adult; Z98.84 Bariatric surgery status
CPT/HCPCS: 80053; 82306; 82607; 82746; 83540; 84425; 85027; 97803; 99211

== ENCOUNTER → 2022-06-24 | Outpatient (CLI) | payer BC | END | disposition home or self-care (01) | LOC: LABWHC1 10:38 | PROVIDERS: ATTEND Surgery | DX: Z53.9 Procedure and treatment not carried out, unspecified reason (principal) ==

== ENCOUNTER → 2022-07-02 | Outpatient (CLI) | payer BC ==
--- NOTE | 2022-07-02 15:12 | P.BASOAP ---
Subjective Progress Note Date: 07/02/22 Principal diagnosis: Morbid obesity Patient returns for reevaluation. Last seen May 2020. Patient has done well since that time. Weight down 4 pounds since her last visit. She says she had lost weight down into the 170s previously. No GERD, no dysphagia. Recent labs look good. Taking a multivitamin, vitamin D, B12. Objective - Vital Signs Vital signs: Vital Signs Temp 98.3 F 07/02/22 14:59 Pulse 82 07/02/22 14:59 Resp BP 113/69 07/02/22 14:59 Pulse Ox FiO2 Intake & Output 07/01/22 07/02/22 07/02/22 18:59 06:59 18:59 Weight 83.007 kg - Exam Abdomen: Soft, nontender, nondistended Assessment/Plan (1) Morbid obesity Narrative/Plan: Patient doing well at this time. Continue dietary and exercise regimen. Patient is now lifting weights. Plan recheck next May. We'll check annual labs at that time. Plan: Date: 07/02/22 Initial Weight: 106.282 kg Initial BMI: 34.6 Current Weight: 83.007 kg Current BMI: 27.0 Type of Surgery: Total Volume in Band: Previous Volume: Volume Removed: Volume Added: Band Size:
[2022-07-02 15:21] VITALS: BP 113/69; PULSE 82; TEMP 98.3; BMI 27.0
== END ==
LOC: BARWHC3 14:36
PROVIDERS: ATTEND Surgery
DX: E66.01 Morbid (severe) obesity due to excess calories (principal); Z87.891 Personal history of nicotine dependence; Z68.27 Body mass index [BMI] 27.0-27.9, adult
CPT/HCPCS: 99211

== ENCOUNTER 2024-05-11 06:13 | Emergency (ER) | payer BC ==
[2024-05-11] MEDS: FAMOTIDINE 20 MG TAB PO STA (06:35)
[2024-05-11] MEDS: diphenhydrAMINE 50 MG/ML 1 ML VIAL IM STA (06:37)
--- NOTE | 2024-05-11 06:59 | ED ---
Allergic Reaction HPI - General Chief complaint: Recheck/Abnormal Lab/Rx Stated complaint: Allergic Reaction Time Seen by Provider: 05/11/24 06:19 Source: patient, RN notes reviewed Mode of arrival: ambulatory Limitations: no limitations - History of Present Illness Initial Comments: This is a 34-year-old female who presents to the emergency department for concerns of an allergic reaction. States that she woke up this morning and felt like her face and neck were swollen and flushed. States that they felt itchy and like they were burning. Also compares this to feeling like she got punched in the face. Denies any itching or rashes elsewhere. States that she has a history of rosacea but this feels different. Denies any new soaps, detergents, or facial products. Does not take any medication currently. Denies any chest pain or shortness of breath. MD Complaint: facial swelling - Related Data Home Medications Medication Instructions Recorded Confirmed Sertraline [Zoloft] 50 mg PO HS 04/28/19 05/09/20 Allergies Allergy/AdvReac Type Severity Reaction Status Date / Time No Known Allergies Allergy Verified 05/11/24 06:17 Review of Systems ROS Statement: Those systems with pertinent positive or pertinent negative responses have been documented in the HPI. ROS Other: All systems not noted in ROS Statement are negative. Past Medical History Past Medical History: No Reported History Additional Past Medical History / Comment(s): past hx of occasional migraines, palpitations, History of Any Multi-Drug Resistant Organisms: None Reported Past Surgical History: Bariatric Surgery Additional Past Surgical History / Comment(s): oral surgery, EGD, gastric sleeve Past Anesthesia/Blood Transfusion Reactions: No Reported Reaction Past Psychological History: Anxiety, Depression Smoking Status: Never smoker Past Alcohol Use History: None Reported Past Drug Use History: None Reported - Past Family History Mother Family Medical History: No Reported History General Exam Limitations: no limitations General appearance: alert, in no apparent distress Head exam: Present: other (Generalized flushing and fullness to the face) Eye exam: Present: normal appearance, PERRL, EOMI. Absent: scleral icterus, conjunctival injection, periorbital swelling ENT exam: Present: normal exam, mucous membranes moist Neck exam: Present: normal inspection. Absent: tenderness, meningismus, lymphadenopathy Respiratory exam: Present: normal lung sounds bilaterally. Absent: respiratory distress, wheezes, rales, rhonchi, stridor Cardiovascular Exam: Present: regular rate, normal rhythm, normal heart sounds. Absent: systolic murmur, diastolic murmur, rubs, gallop, clicks Neurological exam: Present: alert, oriented X3, CN II-XII intact Psychiatric exam: Present: normal affect, normal mood Skin exam: Present: warm, dry, intact, normal color. Absent: rash Course Vital Signs 05/11/24 06:14 Temperature 98 F Pulse Rate 65 Respiratory 18 Rate Blood Pressure 113/74 O2 Sat by Pulse 98 Oximetry Medical Decision Making - Medical Decision Making This is a 34-year-old female who presents to the emergency department for concerns of facial swelling. Was pt. sent in by a medical professional or institution? @ -No Did you speak to anyone other than the patient for history? @ -No Did you review nursing and triage notes? @ -Yes, and I agree, it is accurate with regards to the patient's symptoms. Were old charts reviewed? @ -No Differential Diagnosis? @ -Allergic reaction/angioedema, dental infection, myxedema, this is not meant to be an all-inclusive list. EKG interpreted by me (3pts min.)? @ -Not obtained X-rays interpreted by me (1pt min.)? @ -Not obtained CT interpreted by me (1pt min.)? @ -Not obtained U/S interpreted by me (1pt. min.)? @ -Not obtained What testing was considered but not performed? (CT, X-rays, U/S, labs)? Why? @ -None What meds were considered but not given? Why? @ -Solu-Medrol, however patient refused. Did you discuss the management of the patient with other professionals? @ -No Did you reconcile home meds? @ -No Was smoking cessation discussed for >3mins.? @ -No Was critical care preformed (if so, how long)? @ -No Were there social determinants of health that impacted care today? How? (Homelessness, low income, unemployed, alcoholism, drug addiction, transportation, low edu. Level, literacy, decrease access to med. care, senior living, rehab)? @ -No Was there de-escalation of care discussed even if they declined? (Discuss DNR or withdrawal of care, Hospice)? @ -No What co-morbidities impacted this encounter? (DM, HTN, Smoking, COPD, CAD, Cancer, CVA, Hep., AIDS, mental health diagnosis, sleep apnea, morbid obesity)? @ -Rosacea Was patient admitted / discharged? @ -Discharged. She did have flushing and mild fullness of the face. She did not have any hives or other evidence of an allergic reaction elsewhere on her body. Patient takes no medications at home. We discussed an allergy cocktail. However, she did decline the steroid portion. Advised that this will not be as effective and she does acknowledge this and expressed understanding. She was given IM Benadryl and famotidine. [place] like symptoms did improve for the most part and any residual components may have been related to her rosacea. I again offered the Solu-Medrol, however she declined. Advised she continue with Benadryl and famotidine [id number] with the understanding that if anything worsens she needs to return to the emergency department and may need a steroid at that point. Patient expresses understanding and was discharged home in stable condition. Case discussed with ED attending Dr. Archuleta. Return precautions reviewed in depth, the patient is instructed to return to the emergency department with any new, worsening, or concerning symptoms. Patient verbalized understanding. Undiagnosed new problem with uncertain prognosis? @ -None Drug Therapy requiring intensive monitoring for toxicity (Heparin, Nitro, Insulin, Cardizem)? @ -None Were any procedures done? @ -None Diagnosis/symptom? @ -Possible allergic reaction/facial swelling Acute, or Chronic, or Acute on Chronic? @ -Acute Uncomplicated (without systemic symptoms) or Complicated (systemic symptoms)? @ -Uncomplicated Side effects of treatment? @ -None Exacerbation, Progression, or Severe Exacerbation] @ -Not applicable Poses a threat to life or bodily function? @ -No Disposition Clinical Impression: Allergic reaction Disposition: HOME SELF-CARE Instructions (If sedation given, give patient instructions): Allergies (ED), General Allergic Reaction (ED) Additional Instructions: Return to the emergency department with any new, worsening, or concerning symptoms. Continue to take [id number] Benadryl every 4-6 hours. Take the famotidine twice daily. Follow up with your primary care provider in 1-2 days. Is patient prescribed a controlled substance at d/c from ED?: No Referrals: Peri Medina MD [Primary Care Provider] - 1-2 days Time of Disposition: 07:30
[2024-05-11 07:50] VITALS: BP 108/68; PULSE 61; RESP 16; TEMP 98.1
== END 2024-05-11 07:49 | disposition home or self-care (01) ==
LOC: EC 06:13
DX: T78.40XA Allergy, unspecified, initial encounter (principal); L71.9 Rosacea, unspecified; R22.0 Localized swelling, mass and lump, head
CPT/HCPCS: 99283; 96372; J1200

== ENCOUNTER 2024-09-14 17:46 | Emergency (ER) | payer BC ==
--- NOTE | 2024-09-14 19:10 | ED ---
GI Bleed HPI - General Chief complaint: GI Bleed Stated complaint: blood in stool abd cramping Time Seen by Provider: 09/14/24 18:01 Source: patient, RN notes reviewed Mode of arrival: ambulatory Limitations: no limitations - History of Present Illness Initial comments: 34-year-old female with history of gastric sleeve and [address] Lauren, presenting to the emergency department for intermittent rectal bleeding and abdominal pain. Patient states that since middle of June 2024 she has been experiencing intermittent bright red blood per rectum that will occur once every week or every 2 weeks where she passes large amount of blood and occasional clots which she describes as 'almost like menstrual bleeding.' Today she experienced 2 bouts of her blood per rectum and diarrhea with abdominal cramping where she contacted her primary care provider with the [facility] for evaluation. She does have a history of iron deficiency anemia is currently on iron tablets however is unaware what her baseline hemoglobin is with this last being checked in June. She denies heart palpitations, dizziness, lightheadedness, nausea, vomiting, fevers, urinary complaints. - Related Data Home Medications Medication Instructions Recorded Confirmed Sertraline [Zoloft] 50 mg PO HS 04/28/19 05/09/20 Allergies Allergy/AdvReac Type Severity Reaction Status Date / Time gluten AdvReac Rash/Hives Verified 09/14/24 18:49 Review of Systems ROS Statement: Those systems with pertinent positive or pertinent negative responses have been documented in the HPI. ROS Other: All systems not noted in ROS Statement are negative. Past Medical History Past Medical History: No Reported History Additional Past Medical History / Comment(s): past hx of occasional migraines, palpitations, History of Any Multi-Drug Resistant Organisms: None Reported Past Surgical History: Bariatric Surgery Additional Past Surgical History / Comment(s): oral surgery, EGD, gastric sleeve Past Anesthesia/Blood Transfusion Reactions: No Reported Reaction Past Psychological History: Anxiety, Depression Smoking Status: Never smoker Past Alcohol Use History: None Reported Past Drug Use History: None Reported - Past Family History Mother Family Medical History: No Reported History General Exam Limitations: no limitations Neck exam: Present: normal inspection. Absent: tenderness, meningismus, lymphadenopathy Respiratory exam: Present: normal lung sounds bilaterally. Absent: respiratory distress, wheezes, rales, rhonchi, stridor Cardiovascular Exam: Present: regular rate, normal rhythm, normal heart sounds. Absent: systolic murmur, diastolic murmur, rubs, gallop, clicks GI/Abdominal exam: Present: soft, tenderness (lower and upper abdomen to pal pation), normal bowel sounds. Absent: distended, guarding, rebound, rigid Extremities exam: Present: normal inspection, full ROM, normal capillary refill. Absent: tenderness, pedal edema, joint swelling, calf tenderness Back exam: Present: normal inspection Course Vital Signs 09/14/24 18:43 Temperature 97.8 F Pulse Rate 69 Respiratory 16 Rate Blood Pressure 113/80 O2 Sat by Pulse 99 Oximetry Medical Decision Making - Medical Decision Making Was pt. sent in by a medical professional or institution (, PA, FOAM RUBBER FABRICATOR, urgent care, hospital, or shelter...) When possible be specific @ -No Did you speak to anyone other than the patient for history (EMS, parent, family, police, friend...)? What history was obtained from this source @ -No Did you review nursing and triage notes (agree or disagree)? Why? @ -I reviewed and agree with nursing and triage notes Were old charts reviewed (outside hosp., previous admission, EMS record, old EKG, old radiological studies, urgent care reports/EKG's, shelter records)? Report findings @ -No old charts were reviewed Differential Diagnosis (chest pain, altered mental status, abdominal pain women, abdominal pain men, vaginal bleeding, weakness, fever, dyspnea, syncope, headac he, dizziness, GI bleed, back pain, seizure, CVA, palpatations, mental health, musculoskeletal)? @ -Differential GI Bleed: Esophageal varices, aortoenteric fistula, Diana-Bucio, gastritis, peptic ulcer disease, diverticulosis, inflammatory bowel disease, hemorrhoids, fissure, colitis, malignancy, Meckel's diverticulum, this is not meant to be an all- inclusive list. EKG interpreted by me (3pts min.). @ -Completed at 1859 sinus rhythm with a ventricular rate of 63, AL interval 147, QRS 88, QTc 385. X-rays interpreted by me (1pt min.). @ -None done CT interpreted by me (1pt min.). @ -CT of the abdomen with IV contrast reveals no evidence for acute process involving the colon or bladder with postsurgical changes of the stomach and no evidence of hemorrhage U/S interpreted by me (1pt. min.). @ -None done What testing was considered but not performed or refused? (CT, X-rays, U/S, labs)? Why? @ -None What meds were considered but not given or refused? Why? @ -None Did you discuss the management of the patient with other professionals (professionals i.e. Dr., PA, FOAM RUBBER FABRICATOR, lab, RT, psych nurse, social media marketing specialist, fish culturist, teacher, enforcement officer, employment evaluator/case manager)? Give summary @ -No Was smoking cessation discussed for >3mins.? @ -No Was critical care preformed (if so, how long)? @ -No Were there social determinants of health that impacted care today? How? (Homelessness, low income, unemployed, alcoholism, drug addiction, transportation, low edu. Level, literacy, decrease access to med. care, retirement, rehab)? @ -No Was there de-escalation of care discussed even if they declined (Discuss DNR or withdrawal of care, Hospice)? DNR status @ -No What co-morbidities impacted this encounter? (DM, HTN, Smoking, COPD, CAD, Cancer, CVA, ARF, Chemo, Hep., AIDS, mental health diagnosis, sleep apnea, morbid obesity)? @ -None Was patient admitted / discharged? Hospital course, mention meds given and route, prescriptions, significant lab abnormalities, going to OR and other pertinent info. @ -Discharge. 34 year old female presents emergency department for complaint of rectal bleeding abdominal pain. Patient have femoral tenderness on exam of upper and lower quadrant no signs of rebound tenderness or rigidity. She was offered pain medication however was declined. She will evaluate laboratory testing patient is CT imaging of the abdomen with concern for abdominal pain after complex abdominal gastric sleeve procedure. Rectal examination completed with nursing staff at bedside remarkable for a external hemorrhoid. Rectal tone intact. Patient is not anemic with a hemoglobin of 11.6 and hematocrit of 37.8. CMP is unremarkable. Urinalysis no signs of infection, hCG is negative. Positive stool occult. CT no acute process. As this has been ongoing over the past 3-1/2 months and labs are stable patient stable for discharge with outpatient follow-up. Case discussed with Dr. Can Undiagnosed new problem with uncertain prognosis? @ -No Drug Therapy requiring intensive monitoring for toxicity (Heparin, Nitro, Insulin, Cardizem)? @ -No Were any procedures done? @ -No Diagnosis/symptom? @ -GI bleed, external hemorrhoids, abdominal pain Acute, or Chronic, or Acute on Chronic? @ -Acute Uncomplicated (without systemic symptoms) or Complicated (systemic symptoms)? @ -Uncomplicated Side effects of treatment? @ -No Exacerbation, Progression, or Severe Exacerbation? @ -No Poses a threat to life or bodily function? How? (Chest pain, USA, MS, pneumonia, PE, COPD, DKA, ARF, appy, cholecystitis, CVA, Diverticulitis, Homicidal, Suicidal, threat to staff... and all critical care pts) @ -No - Lab Data Result diagrams: 09/14/24 18:52 09/14/24 18:52 Lab Results 09/14/24 09/14/24 09/14/24 Range/Units 18:47 18:52 18:52 WBC 7.7 (3.8-10.6) k/uL RBC 5.01 (3.80-5.40) m/uL Hgb 11.6 (11.4-16.0) gm/dL Hct 37.8 (34.0-46.0) % MCV 75.5 L (80.0-100.0) fL MCH 23.1 L (25.0-35.0) pg MCHC 30.7 L (31.0-37.0) g/dL RDW 15.3 (11.5-15.5) % Plt Count 309 (150-450) k/uL MPV 6.9 Neutrophils % 62 % Lymphocytes % 29 % Monocytes % 5 % Eosinophils % 1 % Basophils % 1 % Neutrophils # 4.8 (1.3-7.7) k/uL Lymphocytes # 2.2 (1.0-4.8) k/uL Monocytes # 0.4 (0-1.0) k/uL Eosinophils # 0.1 (0-0.7) k/uL Basophils # 0.1 (0-0.2) k/uL Hypochromasia Moderate Microcytosis Slight Sodium 137 (137-145) mmol/L Potassium 4.6 (3.5-5.1) mmol/L Chloride 101 (98-107) mmol/L Carbon Dioxide 23 (22-30) mmol/L Anion Gap 13 mmol/L BUN 16 (7-17) mg/dL Creatinine 0.68 (0.52-1.04) mg/dL Est GFR (CKD-EPI)AfAm >90 (>60 ml/min/1.73 sqM) Est GFR (CKD-EPI)NonAf >90 (>60 ml/min/1.73 sqM) Glucose 87 (74-99) mg/dL Plasma Lactic Acid Fitz (0.7-2.0) mmol/L Calcium 9.5 (8.4-10.2) mg/dL Total Bilirubin 0.3 (0.2-1.3) mg/dL AST 31 (14-36) U/L ALT 21 (4-34) U/L Alkaline Phosphatase 63 (38-126) U/L Total Protein 8.1 (6.3-8.2) g/dL Albumin 4.9 (3.5-5.0) g/dL Lipase 287 (23-300) U/L Urine Color Urine Appearance (Clear) Urine pH (5.0-8.0) Ur Specific Beverly (1.001-1.035) Urine Protein (Negative) Urine Glucose (UA) (Negative) Urine Ketones (Negative) Urine Blood (Negative) Urine Nitrite (Negative) Urine Bilirubin (Negative) Urine Urobilinogen (<2.0) mg/dL Ur Leukocyte Esterase (Negative) Urine HCG, Qual (Not Detectd) Stool Occult Blood (Negative) Blood Type O Positive Blood Type Confirm Blood Type Recheck No Previous Record Bld Type Recheck Status CABO Indicated Antibody Screen NEGATIVE Spec Expiration Date 09/17/2024234609/14/24 09/14/24 09/14/24 Range/Units 18:52 18:52 20:04 WBC (3.8-10.6) k/uL RBC (3.80-5.40) m/uL Hgb (11.4-16.0) gm/dL Hct (34.0-46.0) % MCV (80.0-100.0) fL MCH (25.0-35.0) pg MCHC (31.0-37.0) g/dL RDW (11.5-15.5) % Plt Count (150-450) k/uL MPV Neutrophils % % Lymphocytes % % Monocytes % % Eosinophils % % Basophils % % Neutrophils # (1.3-7.7) k/uL Lymphocytes # (1.0-4.8) k/uL Monocytes # (0-1.0) k/uL Eosinophils # (0-0.7) k/uL Basophils # (0-0.2) k/uL Hypochromasia Microcytosis Sodium (137-145) mmol/L Potassium (3.5-5.1) mmol/L Chloride (98-107) mmol/L Carbon Dioxide (22-30) mmol/L Anion Gap mmol/L BUN (7-17) mg/dL Creatinine (0.52-1.04) mg/dL Est GFR (CKD-EPI)AfAm (>60 ml/min/1.73 sqM) Est GFR (CKD-EPI)NonAf (>60 ml/min/1.73 sqM) Glucose (74-99) mg/dL Plasma Lactic Acid Fitz 1.0 (0.7-2.0) mmol/L Calcium (8.4-10.2) mg/dL Total Bilirubin (0.2-1.3) mg/dL AST (14-36) U/L ALT (4-34) U/L Alkaline Phosphatase (38-126) U/L Total Protein (6.3-8.2) g/dL Albumin (3.5-5.0) g/dL Lipase (23-300) U/L Urine Color Urine Appearance (Clear) Urine pH (5.0-8.0) Ur Specific Beverly (1.001-1.035) Urine Protein (Negative) Urine Glucose (UA) (Negative) Urine Ketones (Negative) Urine Blood (Negative) Urine Nitrite (Negative) Urine Bilirubin (Negative) Urine Urobilinogen (<2.0) mg/dL Ur Leukocyte Esterase (Negative) Urine HCG, Qual (Not Detectd) Stool Occult Blood Positive H (Negative) Blood Type Blood Type Confirm O Positive Blood Type Recheck Bld Type Recheck Status Antibody Screen Spec Expiration Date 09/14/24 09/14/24 Range/Units 20:04 20:04 WBC (3.8-10.6) k/uL RBC (3.80-5.40) m/uL Hgb (11.4-16.0) gm/dL Hct (34.0-46.0) % MCV (80.0-100.0) fL MCH (25.0-35.0) pg MCHC (31.0-37.0) g/dL RDW (11.5-15.5) % Plt Count (150-450) k/uL MPV Neutrophils % % Lymphocytes % % Monocytes % % Eosinophils % % Basophils % % Neutrophils # (1.3-7.7) k/uL Lymphocytes # (1.0-4.8) k/uL Monocytes # (0-1.0) k/uL Eosinophils # (0-0.7) k/uL Basophils # (0-0.2) k/uL Hypochromasia Microcytosis Sodium (137-145) mmol/L Potassium (3.5-5.1) mmol/L Chloride (98-107) mmol/L Carbon Dioxide (22-30) mmol/L Anion Gap mmol/L BUN (7-17) mg/dL Creatinine (0.52-1.04) mg/dL Est GFR (CKD-EPI)AfAm (>60 ml/min/1.73 sqM) Est GFR (CKD-EPI)NonAf (>60 ml/min/1.73 sqM) Glucose (74-99) mg/dL Plasma Lactic Acid Fitz (0.7-2.0) mmol/L Calcium (8.4-10.2) mg/dL Total Bilirubin (0.2-1.3) mg/dL AST (14-36) U/L ALT (4-34) U/L Alkaline Phosphatase (38-126) U/L Total Protein (6.3-8.2) g/dL Albumin (3.5-5.0) g/dL Lipase (23-300) U/L Urine Color Colorless Urine Appearance Clear (Clear) Urine pH 5.5 (5.0-8.0) Ur Specific Beverly 1.012 (1.001-1.035) Urine Protein Negative (Negative) Urine Glucose (UA) Negative (Negative) Urine Ketones Negative (Negative) Urine Blood Negative (Negative) Urine Nitrite Negative (Negative) Urine Bilirubin Negative (Negative) Urine Urobilinogen <2.0 (<2.0) mg/dL Ur Leukocyte Esterase Negative (Negative) Urine HCG, Qual Not Detected (Not Detectd) Stool Occult Blood (Negative) Blood Type Blood Type Confirm Blood Type Recheck Bld Type Recheck Status Antibody Screen Spec Expiration Date Disposition Clinical Impression: GI bleed, Hemorrhoid, Abdominal pain Disposition: HOME SELF-CARE Condition: Good Instructions (If sedation given, give patient instructions): Gastrointestinal Bleeding (ED) Additional Instructions: Please return to the Emergency Department if symptoms worsen or any other concerns. Is patient prescribed a controlled substance at d/c from ED?: No Referrals: Peri Medina MD [Primary Care Provider] - 1-2 days Time of Disposition: 22:06
[2024-09-14 19:23] LABS: Basophils # (A) 0.1 k/uL (0-0.2); Basophils % (A) 1 %; Eosinophils # (A) 0.1 k/uL (0-0.7); Eosinophils % (A) 1 %; HCT 37.8 % (34.0-46.0); HGB 11.6 gm/dL (11.4-16.0); Hypochromasia Moderate; Lymphocytes # (A) 2.2 k/uL (1.0-4.8); Lymphocytes % (A) 29 %; MCH 23.1 pg (25.0-35.0); MCHC 30.7 g/dL (31.0-37.0); MCV 75.5 fL (80.0-100.0); Mean Platelet Volume 6.9; Microcytosis Slight; Monocytes # (A) 0.4 k/uL (0-1.0); Monocytes % (A) 5 %; Neutrophils # (A) 4.8 k/uL (1.3-7.7); Neutrophils % (A) 62 %; Platelet Count 309 k/uL (150-450); RBC 5.01 m/uL (3.80-5.40); RDW 15.3 % (11.5-15.5); WBC 7.7 k/uL (3.8-10.6)
[2024-09-14 19:44] LABS: ALT 21 U/L (4-34); AST 31 U/L (14-36); African American GFR (CKD) >90 (>60 ml/min/1.73 sqM); Albumin 4.9 g/dL (3.5-5.0); Alkaline Phosphatase 63 U/L (38-126); Anion Gap 13 mmol/L; Blood Urea Nitrogen 16 mg/dL (7-17); Calcium 9.5 mg/dL (8.4-10.2); Carbon Dioxide 23 mmol/L (22-30); Chloride 101 mmol/L (98-107); Glucose 87 mg/dL (74-99); Lipase 287 U/L (23-300); Non-African American GFR(CKD) >90 (>60 ml/min/1.73 sqM); Potassium 4.6 mmol/L (3.5-5.1); Sodium 137 mmol/L (137-145); Total Bilirubin 0.3 mg/dL (0.2-1.3); Total Protein 8.1 g/dL (6.3-8.2)
[2024-09-14 20:16] LABS: Appearance,Urine Clear (Clear); Bilirubin,Urine Negative (Negative); Blood,Urine Negative (Negative); Color,Urine Colorless; Glucose,Urine (UA) Negative (Negative); Ketones,Urine Negative (Negative); Leukocyte Esterase,Urine Negative (Negative); Nitrite,Urine Negative (Negative); PH, Urine 5.5 (5.0-8.0); Protein,Urine Negative (Negative); Specific Gravity,Urine 1.012 (1.001-1.035); Urobilinogen,Urine <2.0 mg/dL (<2.0)
--- NOTE | 2024-09-14 21:32 | CT ---
EXAMINATION TYPE: CT abdomen pelvis w con DATE OF EXAM: 09/14/2024 9:16 PM COMPARISON: CT abdomen pelvis most recent from 05/26/2019 CLINICAL INDICATION: Female, 34 years old with history of ab cramping, GI bleed, hx gastric sleeve; P t states that she started having blood in her stool starting June 2024, until now its been approx imately 1-2 times a week. Her doctor told her that she has anemia. Today she noticed large amounts of blood in her stool, she states that it looks similar to a menstrual period. She is now having abdomi nal pain. Denies any N/V, has had diarrhea. TECHNIQUE: Axial CT abdomen pelvis w con;Sagittal and coronal reformats were created on a separate w orkstation. Contrast used:100mL mL of Isovue 300 with IV Contrast, (none if empty) Oral contrast used: without Oral Contrast (none if empty) CT DLP: 1152.1 mGycm, Automated exposure control for dose reduction was used. FINDINGS: LOWER CHEST: Unremarkable ABDOMEN LIVER: Unremarkable GALLBLADDER AND BILE DUCTS: Unremarkable. PANCREAS: Unremarkable. SPLEEN: Unremarkable. ADRENAL GLANDS: Unremarkable. KIDNEYS AND URETERS: No evidence of hydronephrosis or renal calculus. The ureters are unremarkable. PELVIS BLADDER: No evidence for wall thickening or mass given limitations of exam. REPRODUCTIVE: Unremarkable. ABDOMEN & PELVIS STOMACH AND BOWEL: No evidence of bowel obstruction. Postsurgical changes to the stomach. Appendix is normal. PERITONEUM/RETROPERITONEUM: No evidence of pneumoperitoneum or free fluid. VASCULATURE: No evidence of aortic aneurysm. MUSCULOSKELETAL: No acute osseous abnormalities LYMPH NODES: No gross evidence for lymphadenopathy. SOFT TISSUE/ABDOMINAL WALL: Unremarkable IMPRESSION: No evidence for acute process involving the colon or bowel. There is postsurgical changes of the stom ach. No evidence for hemorrhage on this non-GI bleed protocol exam. [facility], , 09/14/2024 9:29 PM
[2024-09-14 22:52] VITALS: BP 110/78; PULSE 72; RESP 17; TEMP 97.9
== END 2024-09-14 22:32 | disposition home or self-care (01) ==
LOC: EC 17:46
DX: K64.9 Unspecified hemorrhoids (principal); K92.2 Gastrointestinal hemorrhage, unspecified; R10.9 Unspecified abdominal pain; Z98.84 Bariatric surgery status
CPT/HCPCS: 36415; 93005; 86900; 86901; 80053; 83605; 83690; 85025; 86850; 82272; 81003; 81025; 74177; 99285; Q9967

== ENCOUNTER 2025-02-01 12:44 | Emergency (ER) | payer BC ==
[2025-02-01 13:05] VITALS: RESP 18
--- NOTE | 2025-02-01 13:48 | ED ---
General Adult HPI - General Chief complaint: Recheck/Abnormal Lab/Rx Stated complaint: Dizziness/Chest Pain Time Seen by Provider: 02/01/25 13:20 Source: patient Mode of arrival: ambulatory Limitations: no limitations - History of Present Illness Initial comments: Dictation was produced using [employer] dictation software. please excuse any grammatical, word or spelling errors. Chief Complaint: 34-year-old female palpitations History of Present Illness: Patient 34-year-old female no significant comorbidities presents emergency department palpitations. Patient has had symptoms for years however per last several days she has had increasing frequency and intensity. Patient has never been formally evaluated or treated by medical professional. Denies any exacerbating or mitigating factors. The ROS documented in this emergency department record has been reviewed and confirmed by me. Those systems with pertinent positive or negative responses h ave been documented in the HPI. All other systems are other negative and/or noncontributory. - Related Data Home Medications Medication Instructions Recorded Confirmed Sertraline [Zoloft] 50 mg PO HS 04/28/19 05/09/20 Review of Systems ROS Statement: Those systems with pertinent positive or pertinent negative responses have been documented in the HPI. ROS Other: All systems not noted in ROS Statement are negative. Past Medical History Past Medical History: No Reported History Additional Past Medical History / Comment(s): past hx of occasional migraines, palpitations, History of Any Multi-Drug Resistant Organisms: None Reported Past Surgical History: Bariatric Surgery Additional Past Surgical History / Comment(s): oral surgery, EGD, gastric sleeve Past Anesthesia/Blood Transfusion Reactions: No Reported Reaction Past Psychological History: Anxiety, Depression Smoking Status: Never smoker Past Alcohol Use History: None Reported Past Drug Use History: None Reported - Past Family History Mother Family Medical History: No Reported History General Exam - General Exam Comments Initial Comments: PHYSICAL EXAM: General Impression: Alert and oriented x3, not in acute distress HEENT: Normocephalic atraumatic, extra-ocular movements intact, pupils equal and reactive to light bilaterally, mucous membranes moist. Cardiovascular: Heart regular rate and rhythm Chest: Able to complete full sentences, no retractions, no tachypnea Abdomen: abdomen soft, non-tender, non-distended, no organomegaly Musculoskeletal: Pulses present and equal in all extremities, no peripheral edema Motor: no focal deficits noted Neurological: CN II-XII grossly intact, no focal motor or sensory deficits noted Skin: Intact with no visualized rashes Psych: Normal affect and mood Limitations: no limitations Course Vital Signs 02/01/25 02/01/25 13:02 14:16 Temperature 97.9 F Pulse Rate 68 70 Respiratory 18 18 Rate Blood Pressure 109/75 94/64 O2 Sat by Pulse 98 99 Oximetry Medical Decision Making - Medical Decision Making Was pt. sent in by a medical professional or institution (, PA, SULFURIC [employer] PLANT OPERATOR, urgent care, hospital, or residential...) When possible be specific @ -No Did you speak to anyone other than the patient for history (EMS, parent, family, police, friend...)? What history was obtained from this source @ -No Did you review nursing and triage notes (agree or disagree)? Why? @ -I reviewed and agree with nursing and triage notes Were old charts reviewed (outside hosp., previous admission, EMS record, old EKG, old radiological studies, urgent care reports/EKG's, residential records)? Report findings @ -No old charts were reviewed Differential Diagnosis (chest pain, altered mental status, abdominal pain women, abdominal pain men, vaginal bleeding, musculoskeletal, weakness, fever, dyspnea, syncope, headache, dizziness, GI bleed, back pain, seizure, CVA, palpatations, mental health)? @ - Differential Palpitations: Ventricular arrhythmias, atrial arrhythmias, myocardial infarction, anemia, thyrotoxicosis, electrolyte imbalance, hypokalemia, pulmonary embolism, pulmonary disease, drugs, alcohol, anxiety, stress.... This is not meant to be an all-inclusive list. EKG interpreted by me (3pts min.). @ -My EKG interpretation: Ventricular rate 67, sinus rhythm, ND 145, QRS 95, QTc 392. No ND prolongation, no QTC prolongation, no ST or T-wave changes noted. EKG compared to default value showing no changes. Overall, this EKG is unremarkable X-rays interpreted by me (1pt min.). @ -Chest x-ray is nonacute CT interpreted by me (1pt min.). @ -None done U/S interpreted by me (1pt. min.). @ -None done What testing was considered but not performed or refused? (CT, X-rays, U/S, labs)? Why? @ -None What meds were considered but not given or refused? Why? @ -None Was smoking cessation discussed for >3mins.? @ -No Were there social determinants of health that impacted care today? How? (Homelessness, low income, unemployed, alcoholism, drug addiction, transportation, low edu. Level, literacy, decrease access to med. care, long term, rehab)? @ -No Was there de-escalation of care discussed even if they declined (Discuss DNR or withdrawal of care, Hospice)? DNR status @ -No What co-morbidities impacted this encounter? (DM, HTN, Smoking, COPD, CAD, Cancer, CVA, ARF, Chemo, Hep., AIDS, mental health diagnosis, sleep apnea, morbid obesity)? @ -None Was patient admitted / discharged? Hospital course, mention meds given and route, prescriptions, significant lab abnormalities, going to OR and other pertinent info. @ -34-year-old female with palpitations. Vital signs upon arrival are within acceptable limits. EKG is unremarkable. Labs are unremarkable. umbrella tipper reviewed showing no arrhythmias. Patient discharged given referral to cardiology. Return precautions discussed Did you discuss the management of the patient with other professionals (professionals i.e. , PA, SULF[employer]ANT OPERATOR, lab, RT, psych nurse, social services counselor, auditing manager, teacher, hydrological technical officer, case liner)? Give summary @ -No Was critical care preformed (if so, how long)? @ -No Undiagnosed new problem with uncertain prognosis? @ -No Drug Therapy requiring intensive monitoring for toxicity (Heparin, Nitro, Insulin, Cardizem)? @ -No Were any procedures done? @ -No Diagnosis/symptom? Acute, or Chronic, or Acute on Chronic? Uncomplicated (without systemic symptoms) or Complicated (systemic symptoms)? @ -Palpitations Side effects of treatment? @ -No Exacerbation, Progression, or Severe Exacerbation? @ -No Poses a threat to life or bodily function? How? (Chest pain, USA, MD, pneumonia, PE, COPD, DKA, ARF, appy, cholecystitis, CVA, Diverticulitis, Homicidal, Suicidal, threat to staff... and all critical care pts) @ -yes - Lab Data Result diagrams: 02/01/25 13:44 02/01/25 13:44 Lab Results 02/01/25 02/01/25 02/01/25 Range/Units 13:44 13:44 13:44 WBC 7.26 (4.50-10.00) 10*3/uL RBC 4.81 (4.10-5.20) 10*6/uL Hgb 12.8 (12.0-15.0) g/dL Hct 38.4 (37.2-46.3) % MCV 79.8 L (80.0-97.0) fL MCH 26.6 L (27.0-32.0) pg MCHC 33.3 (32.0-37.0) g/dL Plt Count 296 (140-440) 10*3/uL MPV 9.0 L (9.5-12.2) fL Immature Gran % (Auto) 0.3 % Neutrophils % 62.7 % Lymphocytes % 30.9 % Monocytes % 4.8 % Eosinophils % 0.7 % Basophils % 0.6 % Immature Gran # 0.02 (0.00-0.04) 10*3/uL Neutrophils # 4.56 (1.80-7.70) 10*3/uL Lymphocytes # 2.24 (0.90-5.00) 10*3/uL Monocytes # 0.35 (0.20-1.00) 10*3/uL Eosinophils # 0.05 (0.04-0.35) 10*3/uL Basophils # 0.04 (0.00-0.10) 10*3/uL PT 11.2 (10.0-12.5) sec INR 1.0 (<1.2) APTT 24.9 (22.0-30.0) sec Sodium 137 (137-145) mmol/L Potassium 4.3 (3.5-5.1) mmol/L Chloride 103 (98-107) mmol/L Carbon Dioxide 22 (22-30) mmol/L Anion Gap 12 mmol/L BUN 14 (7-17) mg/dL Creatinine 0.71 (0.52-1.04) mg/dL Est GFR (CKD-EPI)AfAm >90 (>60 ml/min/1.73 sqM) Est GFR (CKD-EPI)NonAf >90 (>60 ml/min/1.73 sqM) Glucose 78 (74-99) mg/dL Calcium 9.4 (8.4-10.2) mg/dL Magnesium 2.0 (1.6-2.3) mg/dL Total Bilirubin 0.4 (0.2-1.3) mg/dL AST 28 (14-36) U/L ALT 18 (4-34) U/L Alkaline Phosphatase 57 (38-126) U/L Troponin I (0.000-0.034) ng/mL Total Protein 7.5 (6.3-8.2) g/dL Albumin 4.5 (3.5-5.0) g/dL 02/01/25 Range/Units 13:44 WBC (4.50-10.00) 10*3/uL RBC (4.10-5.20) 10*6/uL Hgb (12.0-15.0) g/dL Hct (37.2-46.3) % MCV (80.0-97.0) fL MCH (27.0-32.0) pg MCHC (32.0-37.0) g/dL Plt Count (140-440) 10*3/uL MPV (9.5-12.2) fL Immature Gran % (Auto) % Neutrophils % % Lymphocytes % % Monocytes % % Eosinophils % % Basophils % % Immature Gran # (0.00-0.04) 10*3/uL Neutrophils # (1.80-7.70) 10*3/uL Lymphocytes # (0.90-5.00) 10*3/uL Monocytes # (0.20-1.00) 10*3/uL Eosinophils # (0.04-0.35) 10*3/uL Basophils # (0.00-0.10) 10*3/uL PT (10.0-12.5) sec INR (<1.2) APTT (22.0-30.0) sec Sodium (137-145) mmol/L Potassium (3.5-5.1) mmol/L Chloride (98-107) mmol/L Carbon Dioxide (22-30) mmol/L Anion Gap mmol/L BUN (7-17) mg/dL Creatinine (0.52-1.04) mg/dL Est GFR (CKD-EPI)AfAm (>60 ml/min/1.73 sqM) Est GFR (CKD-EPI)NonAf (>60 ml/min/1.73 sqM) Glucose (74-99) mg/dL Calcium (8.4-10.2) mg/dL Magnesium (1.6-2.3) mg/dL Total Bilirubin (0.2-1.3) mg/dL AST (14-36) U/L ALT (4-34) U/L Alkaline Phosphatase (38-126) U/L Troponin I <0.012 (0.000-0.034) ng/mL Total Protein (6.3-8.2) g/dL Albumin (3.5-5.0) g/dL Disposition Clinical Impression: Palpitations Disposition: HOME SELF-CARE Condition: Fair Instructions (If sedation given, give patient instructions): Heart Palpitations (ED) Is patient prescribed a controlled substance at d/c from ED?: No Referrals: Maira Haywood MD [Primary Care Provider] - 1-2 days Nishant Grossman DO [STAFF PHYSICIAN] - 1-2 days Time of Disposition: 14:55
[2025-02-01 14:04] LABS: Basophils # (A) 0.04 10*3/uL (0.00-0.10); Basophils % (A) 0.6 %; Eosinophils # (A) 0.05 10*3/uL (0.04-0.35); Eosinophils % (A) 0.7 %; HCT 38.4 % (37.2-46.3); HGB 12.8 g/dL (12.0-15.0); Lymphocytes # (A) 2.24 10*3/uL (0.90-5.00); Lymphocytes % (A) 30.9 %; MCH 26.6 pg (27.0-32.0); MCHC 33.3 g/dL (32.0-37.0); MCV 79.8 fL (80.0-97.0); Monocytes # (A) 0.35 10*3/uL (0.20-1.00); Monocytes % (A) 4.8 %; Neutrophils # (A) 4.56 10*3/uL (1.80-7.70); Neutrophils % (A) 62.7 %; Platelet Count 296 10*3/uL (140-440); RBC 4.81 10*6/uL (4.10-5.20); RDW 17.6 % (11.5-14.5); WBC 7.26 10*3/uL (4.50-10.00)
--- NOTE | 2025-02-01 14:06 | XR ---
EXAMINATION TYPE: XR chest 2V DATE OF EXAM: 02/01/2025 2:00 PM COMPARISON: None TECHNIQUE: XR chest 2V Frontal and lateral views of the chest. CLINICAL INDICATION:Female, 34 years old with history of Chest Pain; FINDINGS: Lungs/Pleura: There is no evidence of pleural effusion, focal consolidation, or pneumothorax. Pulmonary vascularity: Unremarkable. Heart/mediastinum: Cardiomediastinal silhouette is unremarkable. Musculoskeletal: No acute osseous pathology. IMPRESSION: No acute cardiopulmonary disease/process. [facility], , 02/01/2025 2:04 PM
[2025-02-01 14:14] LABS: INR 1.0 (<1.2); Partial Thromboplastin Time 24.9 sec (22.0-30.0); Prothrombin Time 11.2 sec (10.0-12.5)
[2025-02-01 14:24] LABS: ALT 18 U/L (4-34); AST 28 U/L (14-36); African American GFR (CKD) >90 (>60 ml/min/1.73 sqM); Albumin 4.5 g/dL (3.5-5.0); Alkaline Phosphatase 57 U/L (38-126); Anion Gap 12 mmol/L; Blood Urea Nitrogen 14 mg/dL (7-17); Calcium 9.4 mg/dL (8.4-10.2); Carbon Dioxide 22 mmol/L (22-30); Chloride 103 mmol/L (98-107); Glucose 78 mg/dL (74-99); Magnesium 2.0 mg/dL (1.6-2.3); Non-African American GFR(CKD) >90 (>60 ml/min/1.73 sqM); Potassium 4.3 mmol/L (3.5-5.1); Sodium 137 mmol/L (137-145); Total Protein 7.5 g/dL (6.3-8.2)
[2025-02-01 15:09] VITALS: BP 124/78; PULSE 68; TEMP 97.8
== END 2025-02-01 15:17 | disposition home or self-care (01) ==
LOC: EC 12:44
DX: R00.2 Palpitations (principal)
CPT/HCPCS: 36415; 71046; 80053; 83735; 84484; 85025; 85610; 85730; 93005; 99285